=== PATIENT | female | born 1955 | race Asian ===

== ENCOUNTER 2016-07-15 08:00 | Outpatient (CLI) | payer OTHER, MEDICARE | END 2016-07-15 23:59 | DX: N05.9 Unspecified nephritic syndrome with unspecified morphologic changes (principal); T86.10 Unspecified complication of kidney transplant; D70.9 Neutropenia, unspecified; D63.1 Anemia in chronic kidney disease ==

== ENCOUNTER 2016-10-01 07:35 | Outpatient (CLI) | payer OTHER, MEDICARE ==
[2016-10-01 13:03] LABS: HCT - HEMATOCRIT 35.7 % (37.0-47.0); HGB - HEMOGLOBIN 12.1 g/dL (12.0-16.0); MEAN CORPUSCULAR HGB CONC 33.9 g/dL (32.0-36.0); MEAN CORPUSCULAR VOLUME 85.7 fL (81.0-99.0); MEAN PLATELET VOLUME 8.7 fL (7.9-10.8); RED BLOOD COUNT 4.17 10^6/uL (4.20-5.40); RED CELL DISTRIBUTION WIDTH 12.7 % (12.0-15.0)
[2016-10-01 13:45] LABS: CALCIUM 9.7 mg/dL (8.5-10.3); CREATININE 0.7 mg/dL (0.4-1.0); POTASSIUM 4.1 mmol/L (3.5-5.0)
[2016-10-04 13:53] LABS: TEST RESULT REPORT (())
== END 2016-10-01 07:36 | disposition home or self-care (01) ==
LOC: LAB.WCP 07:35
PROVIDERS: ATTEND Internal Medicine Nephrology
DX: N05.9 Unspecified nephritic syndrome with unspecified morphologic changes (principal); D70.9 Neutropenia, unspecified; D63.1 Anemia in chronic kidney disease; T86.10 Unspecified complication of kidney transplant; R80.9 Proteinuria, unspecified
CPT/HCPCS: 36415; 80048; 80195; 80197; 81599; 82570; 84156

== ENCOUNTER → 2016-10-09 | Outpatient (CLI) | payer OTHER, MEDICARE | LOC: LAB.WCP 08:02 | PROVIDERS: ATTEND Internal Medicine Nephrology | DX: T86.10 Unspecified complication of kidney transplant (principal) | CPT/HCPCS: 36415; 80197 ==

== ENCOUNTER 2016-10-25 13:53 | Outpatient (CLI) | payer OTHER, MEDICARE ==
--- NOTE | 2016-10-25 16:05 | XRAY Report ---
TWO VIEW CHEST: 10/25/2016 CLINICAL INDICATION: Dyspnea. COMPARISON: 12/15/2008. FINDINGS: Frontal and lateral views of the chest demonstrate a normal cardiac silhouette. The lungs are clear. No effusion or pneumothorax is present. IMPRESSION: NORMAL CHEST. JOB #: [id number] EXT JOB #:[id number]
== END 2016-10-25 13:54 | disposition home or self-care (01) ==
LOC: DI 13:53
PROVIDERS: ATTEND Internal Medicine Nephrology
DX: R06.00 Dyspnea, unspecified (principal)
CPT/HCPCS: 71020

== ENCOUNTER 2016-10-28 09:05 | Outpatient (CLI) | payer OTHER, MEDICARE ==
[2016-10-28 12:37] LABS: HGB - HEMOGLOBIN 11.9 g/dL (12.0-16.0); MEAN CORPUSCULAR HEMOGLOBIN 29.2 pg (27.0-31.0); MEAN CORPUSCULAR HGB CONC 33.9 g/dL (32.0-36.0); MEAN CORPUSCULAR VOLUME 86.1 fL (81.0-99.0); MEAN PLATELET VOLUME 8.2 fL (7.9-10.8); RED BLOOD COUNT 4.07 10^6/uL (4.20-5.40); RED CELL DISTRIBUTION WIDTH 12.5 % (12.0-15.0); WHITE BLOOD COUNT 9.1 x10^3/uL (4.8-10.8)
[2016-10-28 12:54] LABS: HEMOGLOBIN A1C 0.67 g/dL
[2016-10-28 13:15] LABS: CHOL/HDL RATIO 4.1 (<4.4); CHOLESTEROL 159 mg/dL; HDL CHOLESTEROL 39 mg/dL; LDL/HDL RATIO 1.4 (<4.4); TRIGLYCERIDES 319 mg/dL; VLDL CHOLESTEROL 64 mg/dL
== END 2016-10-28 09:06 | disposition home or self-care (01) ==
LOC: LAB.WCP 09:05
PROVIDERS: ATTEND Internal Medicine Nephrology
DX: D70.9 Neutropenia, unspecified (principal); T86.10 Unspecified complication of kidney transplant; E03.9 Hypothyroidism, unspecified
CPT/HCPCS: 36415; 80061; 80197; 83036; 84443

== ENCOUNTER 2017-01-22 10:10 | Outpatient (CLI) | payer OTHER, MEDICARE ==
[2017-01-22 14:03] LABS: BASOPHILS # (AUTO) 0.1 10^3/uL (0.0-0.1); BASOPHILS % (AUTO) 0.6 %; EOSINOPHILS # (AUTO) 0.4 10^3/uL (0.0-0.7); EOSINOPHILS % (AUTO) 3.6 %; HCT - HEMATOCRIT 32.1 % (37.0-47.0); HGB - HEMOGLOBIN 10.8 g/dL (12.0-16.0); LYMPHOCYTES # (AUTO) 3.5 10^3/uL (1.5-3.5); LYMPHOCYTES % (AUTO) 28.4 %; MEAN CORPUSCULAR HEMOGLOBIN 28.4 pg (27.0-31.0); MEAN CORPUSCULAR HGB CONC 33.5 g/dL (32.0-36.0); MEAN CORPUSCULAR VOLUME 84.8 fL (81.0-99.0); MEAN PLATELET VOLUME 7.5 fL (7.9-10.8); MONOCYTES # (AUTO) 0.9 10^3/uL (0.0-1.0); NEUTROPHILS # (AUTO) 7.4 10^3/uL (1.5-6.6); NEUTROPHILS % (AUTO) 60.4 %; RED BLOOD COUNT 3.79 10^6/uL (4.20-5.40); RED CELL DISTRIBUTION WIDTH 12.4 % (12.0-15.0); UNCORRECTED WHITE BLOOD COUNT 12.3 x10^3/uL; WHITE BLOOD COUNT 12.3 x10^3/uL (4.8-10.8)
== END 2017-01-22 10:11 | disposition home or self-care (01) ==
LOC: LAB.WCP 10:10
PROVIDERS: ATTEND Family Medicine
DX: D72.829 Elevated white blood cell count, unspecified (principal)
CPT/HCPCS: 36415; 85025

== ENCOUNTER 2017-01-27 09:20 | Outpatient (CLI) | payer OTHER, MEDICARE ==
[2017-01-27 14:04] LABS: CALCIUM 9.5 mg/dL (8.5-10.3); CREATININE 0.7 mg/dL (0.4-1.0); POTASSIUM 4.1 mmol/L (3.5-5.0)
[2017-01-27 14:20] LABS: BASOPHILS # (AUTO) 0.1 10^3/uL (0.0-0.1); BASOPHILS % (AUTO) 0.7 %; EOSINOPHILS # (AUTO) 0.6 10^3/uL (0.0-0.7); EOSINOPHILS % (AUTO) 5.3 %; HCT - HEMATOCRIT 31.5 % (37.0-47.0); HGB - HEMOGLOBIN 10.7 g/dL (12.0-16.0); LYMPHOCYTES # (AUTO) 3.6 10^3/uL (1.5-3.5); MEAN CORPUSCULAR HEMOGLOBIN 28.6 pg (27.0-31.0); MEAN CORPUSCULAR VOLUME 84.1 fL (81.0-99.0); MEAN PLATELET VOLUME 7.3 fL (7.9-10.8); MONOCYTES # (AUTO) 0.7 10^3/uL (0.0-1.0); MONOCYTES % (AUTO) 6.1 %; NEUTROPHILS # (AUTO) 6.2 10^3/uL (1.5-6.6); NEUTROPHILS % (AUTO) 55.9 %; RED BLOOD COUNT 3.74 10^6/uL (4.20-5.40); RED CELL DISTRIBUTION WIDTH 12.4 % (12.0-15.0); UNCORRECTED WHITE BLOOD COUNT 11.1 x10^3/uL; WHITE BLOOD COUNT 11.1 x10^3/uL (4.8-10.8)
== END 2017-01-27 09:21 | disposition home or self-care (01) ==
LOC: LAB.WCP 09:20
PROVIDERS: ATTEND Internal Medicine Nephrology
DX: N05.9 Unspecified nephritic syndrome with unspecified morphologic changes (principal); D70.9 Neutropenia, unspecified; D63.1 Anemia in chronic kidney disease; T86.10 Unspecified complication of kidney transplant
CPT/HCPCS: 36415; 80048; 80197; 82728; 85025

== ENCOUNTER 2017-03-05 10:20 | Outpatient (CLI) | payer OTHER, MEDICARE ==
--- NOTE | 2017-03-06 15:31 | Mammography Report ---
DIGITAL SCREENING MAMMOGRAM: 03/05/2017 CLINICAL INDICATION: A 62-year-old with history of benign right breast biopsy for screening. COMPARISON: 03/2015, 01/2014, 09/2012, 01/2012 TECHNIQUE: Routine CC and MLO projections were obtained of the breasts as well as bilateral laterall y exaggerated craniocaudal views. FINDINGS: The breasts demonstrate heterogeneously dense fibroglandular parenchyma bilaterally. Post -biopsy changes in the right upper central breast are stable. Punctate, typically benign calcificati ons are present. No suspicious masses, clustered microcalcifications, or regions of architectural di stortion are identified. IMPRESSION: BENIGN FINDINGS. RECOMMENDATION: Routine annual screening unless otherwise clinically indicated. BIRADS CATEGORY 2 - BENIGN FINDINGS. STANDARD QUALIFYING STATEMENTS 1. This examination was reviewed with the aid of Computer-Aided Detection (CAD). 2. A negative or benign imaging report should not delay biopsy if clinically suspicious findings are present. Consider surgical consultation if warranted. More than 5% of cancers are not identified by i maging. 3. Dense breasts may obscure an underlying neoplasm. JOB #: [id number] EXT JOB #:[id number]
== END 2017-03-05 10:21 | disposition home or self-care (01) ==
LOC: DI 10:20
PROVIDERS: ATTEND Family Medicine
DX: Z12.31 Encounter for screening mammogram for malignant neoplasm of breast (principal)
CPT/HCPCS: 77067

== ENCOUNTER 2017-05-20 08:00 | Outpatient (CLI) | payer OTHER, MEDICARE ==
[2017-05-20 13:06] LABS: HGB - HEMOGLOBIN 11.5 g/dL (12.0-16.0); MEAN CORPUSCULAR HEMOGLOBIN 28.8 pg (27.0-31.0); MEAN CORPUSCULAR VOLUME 84.6 fL (81.0-99.0); RED CELL DISTRIBUTION WIDTH 13.3 % (12.0-15.0); WHITE BLOOD COUNT 8.4 x10^3/uL (4.8-10.8)
[2017-05-20 14:10] LABS: HB2 TOTAL 12.2 g/dL; HEMOGLOBIN A1C 0.65 g/dL
[2017-05-20 14:13] LABS: BUN - BLOOD UREA NITROGEN 22 mg/dL (6-20); CALCIUM 9.4 mg/dL (8.5-10.3); CARBON DIOXIDE - CO2 24 mmol/L (21-32); CHLORIDE 103 mmol/L (101-111); CHOL/HDL RATIO 3.4 (<4.4); CHOLESTEROL 161 mg/dL; CREATININE 0.8 mg/dL (0.4-1.0); GFR - MDRD 72 (>89); GLUCOSE 136 mg/dL (70-100); HDL CHOLESTEROL 47 mg/dL; LDL CHOLESTEROL,CALCULATED 80 mg/dL; LDL/HDL RATIO 1.7 (<4.4); SODIUM 136 mmol/L (135-145); VLDL CHOLESTEROL 34 mg/dL
== END 2017-05-20 08:01 | disposition home or self-care (01) ==
LOC: LAB.WCP 08:00
PROVIDERS: ATTEND Internal Medicine Nephrology
DX: E11.9 Type 2 diabetes mellitus without complications (principal); N05.9 Unspecified nephritic syndrome with unspecified morphologic changes; D70.9 Neutropenia, unspecified; D63.1 Anemia in chronic kidney disease; T86.10 Unspecified complication of kidney transplant
CPT/HCPCS: 36415; 80048; 80061; 80197; 83036

== ENCOUNTER 2017-05-27 08:00 | Outpatient (CLI) | payer OTHER, MEDICARE ==
[2017-05-27 12:44] LABS: HGB - HEMOGLOBIN 12.3 g/dL (12.0-16.0); MEAN CORPUSCULAR HEMOGLOBIN 28.7 pg (27.0-31.0); MEAN CORPUSCULAR HGB CONC 34.2 g/dL (32.0-36.0); MEAN CORPUSCULAR VOLUME 83.9 fL (81.0-99.0); MEAN PLATELET VOLUME 7.6 fL (7.9-10.8); RED BLOOD COUNT 4.3 10^6/uL (4.20-5.40); RED CELL DISTRIBUTION WIDTH 13.1 % (12.0-15.0); WHITE BLOOD COUNT 10.3 x10^3/uL (4.8-10.8)
[2017-05-27 12:53] LABS: CALCIUM 9.6 mg/dL (8.5-10.3); CREATININE 0.8 mg/dL (0.4-1.0)
== END 2017-05-27 08:01 | disposition home or self-care (01) ==
LOC: LAB.WCP 08:00
PROVIDERS: ATTEND Internal Medicine Nephrology
DX: N05.9 Unspecified nephritic syndrome with unspecified morphologic changes (principal); D70.9 Neutropenia, unspecified; D63.1 Anemia in chronic kidney disease; T86.10 Unspecified complication of kidney transplant
CPT/HCPCS: 36415; 80048; 80197; 85025

== ENCOUNTER 2017-06-11 08:00 | Outpatient (CLI) | payer OTHER, MEDICARE | END 2017-06-11 08:01 | disposition home or self-care (01) | LOC: LAB.WCP 08:00 | PROVIDERS: ATTEND Internal Medicine Nephrology | DX: T86.10 Unspecified complication of kidney transplant (principal) | CPT/HCPCS: 36415; 80197 ==

== ENCOUNTER 2017-06-18 08:00 | Outpatient (CLI) | payer OTHER, MEDICARE | END 2017-06-18 08:01 | disposition home or self-care (01) | LOC: LAB.WCP 08:00 | PROVIDERS: ATTEND Internal Medicine Nephrology | DX: T86.10 Unspecified complication of kidney transplant (principal) | CPT/HCPCS: 36415; 80197 ==

== ENCOUNTER 2017-07-10 10:18 | Outpatient (CLI) | payer OTHER, MEDICARE ==
--- NOTE | 2017-07-11 10:39 | DEXA Report ---
DEXA: 07/10/2017 CLINICAL INDICATION: Postmenopausal osteoporosis. TECHNIQUE: Dual energy x-ray absorptiometry (DXA) was performed on a [employer] system. Regions measured are the AP spine, femoral neck, and, if needed, forearm. COMPARISON: None. In accordance with the International Society for Clinical Densitometry (ISCD) guidelines, data from previous exams may be reanalyzed using current recommendations and techniques. This is done to allow a more accurate basis for comparison with the current study. FINDINGS The data for the lumbar spine is as follows: REGION BMD (g/cm/cm) T-SCORE Z-SCORE L1 0.834 -2.5 -0.1 L2 0.808 -3.3 -0.9 L3 0.738 -3.9 -1.5 L4 0.930 -2.2 0.1 L1-L4 0.828 -2.9 -0.6 NOTE: All evaluable vertebrae are used for classification. The data for the hip is as follows: REGION BMD (g/cm/cm) T-SCORE Z-SCORE Neck 0.592 -3.2 -1.2 TOTAL 0.694 -2.5 -0.7 NOTE: The femoral neck or total proximal femur, whichever is lowest, is used for classification. IMPRESSION THE WHO CLASSIFICATION BASED ON THE INTERNATIONAL REFERENCE STANDARD IS OSTEOPOROSIS. THE FRACTURE RISK IS HIGH. RECOMMENDATION: Patients with diagnosis of osteoporosis or osteopenia should have regular bone mineral density assessment. For those eligible for Medicare, routine testing is allowed once every 2 years. Testing frequency can be increased for patients who have rapidly progressing disease or for those who are receiving medical therapy to restore bone mass. COMMENT: World Health Organization (WHO) definitions for osteoporosis and osteopenia: NORMAL BMD: T-score at 1.0 or higher, fracture risk is low. OSTEOPENIA BMD: T-score between 1.0 and -2.5, fracture risk is increased. OSTEOPOROSIS BMD: T-score at 2.5 or lower, fracture risk high. National Osteoporosis Foundation recommends: 1. Obtain adequate dietary calcium (at least 1200 mg per day) and vitamin D (400 -800 international units per day). 2. Participate, as appropriate, in regular weightbearing and muscle- strengthening exercise. 3. Avoid tobacco use and reduce alcohol and caffeine intake. 4. For more detailed information see the website at www.NOF.org. TD: 07/10/2017 17:17 IVÁN
== END 2017-07-10 10:19 | disposition home or self-care (01) ==
LOC: DI 10:18
PROVIDERS: ATTEND Family Medicine
DX: M81.0 Age-related osteoporosis without current pathological fracture (principal)
CPT/HCPCS: 77080

== ENCOUNTER 2017-10-01 08:00 | Outpatient (CLI) | payer OTHER, MEDICARE ==
[2017-10-01 13:03] LABS: BASOPHILS # (AUTO) 0.1 10^3/uL (0.0-0.1); BASOPHILS % (AUTO) 1.1 %; EOSINOPHILS # (AUTO) 0.5 10^3/uL (0.0-0.7); EOSINOPHILS % (AUTO) 5.1 %; HGB - HEMOGLOBIN 12.3 g/dL (12.0-16.0); LYMPHOCYTES # (AUTO) 3.4 10^3/uL (1.5-3.5); MEAN CORPUSCULAR HEMOGLOBIN 28.9 pg (27.0-31.0); MEAN CORPUSCULAR HGB CONC 34.1 g/dL (32.0-36.0); MEAN CORPUSCULAR VOLUME 84.7 fL (81.0-99.0); MEAN PLATELET VOLUME 8.3 fL (7.9-10.8); MONOCYTES # (AUTO) 0.5 10^3/uL (0.0-1.0); NEUTROPHILS # (AUTO) 4.7 10^3/uL (1.5-6.6); NEUTROPHILS % (AUTO) 51.8 %; PLT - PLATELET COUNT 302 10^3/uL (130-450); RED BLOOD COUNT 4.27 10^6/uL (4.20-5.40); RED CELL DISTRIBUTION WIDTH 12.6 % (12.0-15.0); WHITE BLOOD COUNT 9.1 x10^3/uL (4.8-10.8)
[2017-10-01 13:13] LABS: ALBUMIN 4.6 g/dL (3.2-5.5); ALBUMIN/GLOBULIN RATIO 1.4 (1.0-2.2); ALKALINE PHOSPHATASE 43 IU/L (42-121); ALT ALANINE AMINOTRANSFERASE 29 IU/L (10-60); AST ASPARTATE AMINOTRANSFERASE 28 IU/L (10-42); BILIRUBIN,TOTAL 0.8 mg/dL (0.2-1.0); BUN - BLOOD UREA NITROGEN 16 mg/dL (6-20); CALCIUM 9.7 mg/dL (8.5-10.3); CARBON DIOXIDE - CO2 25 mmol/L (21-32); CHLORIDE 98 mmol/L (101-111); CHOL/HDL RATIO 3.2 (<4.4); CHOLESTEROL 149 mg/dL; CREATININE 0.6 mg/dL (0.4-1.0); GFR - MDRD 101 (>89); GLUCOSE 139 mg/dL (70-100); HDL CHOLESTEROL 46 mg/dL; LDL CHOLESTEROL,CALCULATED 64 mg/dL; LDL/HDL RATIO 1.4 (<4.4); SODIUM 133 mmol/L (135-145); TOTAL PROTEIN 7.9 g/dL (6.7-8.2); VLDL CHOLESTEROL 39 mg/dL
[2017-10-01 13:17] LABS: HB2 TOTAL 13.6 g/dL; HEMOGLOBIN A1C 0.73 g/dL; HEMOGLOBIN A1C % 7.1 % (4.6-6.2)
[2017-10-01 13:18] LABS: THYROID STIMULATING HORMONE 2.23 uIU/mL (0.34-5.60)
== END 2017-10-01 08:01 ==
LOC: LAB.WCP 08:00
PROVIDERS: ATTEND Family Medicine
DX: Z94.0 Kidney transplant status (principal); E11.22 Type 2 diabetes mellitus with diabetic chronic kidney disease; N18.9 Chronic kidney disease, unspecified; D63.1 Anemia in chronic kidney disease; E78.5 Hyperlipidemia, unspecified
CPT/HCPCS: 36415; 80053; 80061; 80197; 82607; 82728; 83036; 83721; 84443; 85025

== ENCOUNTER 2017-11-17 08:19 | Outpatient (CLI) | payer OTHER, MEDICARE ==
[2017-11-17 12:37] LABS: HGB - HEMOGLOBIN 11.8 g/dL (12.0-16.0); MEAN CORPUSCULAR HEMOGLOBIN 28.7 pg (27.0-31.0); MEAN CORPUSCULAR HGB CONC 33.1 g/dL (32.0-36.0); MEAN CORPUSCULAR VOLUME 86.7 fL (81.0-99.0); MEAN PLATELET VOLUME 8.1 fL (7.9-10.8); RED BLOOD COUNT 4.13 10^6/uL (4.20-5.40); RED CELL DISTRIBUTION WIDTH 12.8 % (12.0-15.0)
[2017-11-17 12:42] LABS: CREATININE 0.6 mg/dL (0.4-1.0)
[2017-11-17 12:49] LABS: CREATININE,URINE 92.2 mg/dL; PROTEIN/CREATININE RATIO,URINE 0.8 (<=0.2)
== END 2017-11-17 08:20 | disposition home or self-care (01) ==
LOC: LAB.WCP 08:19
PROVIDERS: ATTEND Internal Medicine Nephrology
DX: N05.9 Unspecified nephritic syndrome with unspecified morphologic changes (principal); D63.1 Anemia in chronic kidney disease; D70.9 Neutropenia, unspecified; T86.10 Unspecified complication of kidney transplant; R80.9 Proteinuria, unspecified
CPT/HCPCS: 36415; 80048; 80197; 82570; 84156; 85027

== ENCOUNTER 2017-12-17 08:00 | Outpatient (CLI) | payer OTHER, MEDICARE ==
[2017-12-17 19:00] LABS: BASOPHILS # (AUTO) 0.1 10^3/uL (0.0-0.1); BASOPHILS % (AUTO) 1.2 %; EOSINOPHILS # (AUTO) 0.5 10^3/uL (0.0-0.7); EOSINOPHILS % (AUTO) 5.2 %; HGB - HEMOGLOBIN 11.9 g/dL (12.0-16.0); LYMPHOCYTES # (AUTO) 2.5 10^3/uL (1.5-3.5); LYMPHOCYTES % (AUTO) 27.5 %; MEAN CORPUSCULAR HEMOGLOBIN 28.4 pg (27.0-31.0); MEAN CORPUSCULAR HGB CONC 32.3 g/dL (32.0-36.0); MEAN CORPUSCULAR VOLUME 88.1 fL (81.0-99.0); MEAN PLATELET VOLUME 7.7 fL (7.9-10.8); MONOCYTES # (AUTO) 0.6 10^3/uL (0.0-1.0); MONOCYTES % (AUTO) 6.7 %; NEUTROPHILS # (AUTO) 5.3 10^3/uL (1.5-6.6); NEUTROPHILS % (AUTO) 59.4 %; PLT - PLATELET COUNT 474 10^3/uL (130-450); RED BLOOD COUNT 4.19 10^6/uL (4.20-5.40); RED CELL DISTRIBUTION WIDTH 12.8 % (12.0-15.0); WHITE BLOOD COUNT 8.9 x10^3/uL (4.8-10.8)
[2017-12-17 19:14] LABS: ALBUMIN 3.9 g/dL (3.2-5.5); BILIRUBIN,TOTAL 0.5 mg/dL (0.2-1.0); CALCIUM 9.5 mg/dL (8.5-10.3); CREATININE 0.7 mg/dL (0.4-1.0); TOTAL PROTEIN 7.7 g/dL (6.7-8.2)
== END 2017-12-17 08:01 ==
LOC: LAB.WCP 08:00
PROVIDERS: ATTEND Family Medicine
DX: Z20.1 Contact with and (suspected) exposure to tuberculosis (principal)
CPT/HCPCS: 36415; 80053; 85025

== ENCOUNTER 2018-01-15 10:55 | Outpatient (CLI) | payer OTHER, MEDICARE ==
[2018-01-15 19:14] LABS: ALBUMIN 4.5 g/dL (3.2-5.5); ALBUMIN/GLOBULIN RATIO 1.3 (1.0-2.2); BILIRUBIN,TOTAL 0.7 mg/dL (0.2-1.0); CALCIUM 9.7 mg/dL (8.5-10.3); CREATININE 0.6 mg/dL (0.4-1.0)
== END 2018-01-15 10:56 | disposition home or self-care (01) ==
LOC: LAB.WCP 10:55
PROVIDERS: ATTEND Family Medicine
DX: R76.11 Nonspecific reaction to tuberculin skin test without active tuberculosis (principal)
CPT/HCPCS: 36415; 80053

== ENCOUNTER 2018-02-17 13:48 | Outpatient (CLI) | payer OTHER, MEDICARE ==
[2018-02-17 19:10] LABS: ALBUMIN 4.5 g/dL (3.2-5.5); ALBUMIN/GLOBULIN RATIO 1.3 (1.0-2.2); BILIRUBIN,TOTAL 0.5 mg/dL (0.2-1.0); CALCIUM 9.5 mg/dL (8.5-10.3); CREATININE 0.8 mg/dL (0.4-1.0); TOTAL PROTEIN 7.9 g/dL (6.7-8.2)
== END 2018-02-17 13:49 | disposition home or self-care (01) ==
LOC: LAB.WCP 13:48
PROVIDERS: ATTEND Family Medicine
DX: R76.11 Nonspecific reaction to tuberculin skin test without active tuberculosis (principal)
CPT/HCPCS: 36415; 80053

== ENCOUNTER 2018-03-03 15:57 | Outpatient (CLI) | payer OTHER, MEDICARE | END 2018-03-03 15:58 | disposition critical access hospital (66) | LOC: EMS 15:57 | PROVIDERS: ATTEND Surgery | DX: M25.532 Pain in left wrist (principal); W10.8XXA Fall (on) (from) other stairs and steps, initial encounter; Y92.008 Other place in unspecified non-institutional (private) residence as the place of occurrence of the external cause | CPT/HCPCS: A0425; A0429 ==

== ENCOUNTER 2018-03-03 16:22 | Emergency (ER) | payer MEDICARE, OTHER ==
[2018-03-03] MEDS ORDERED: ACETAMINOPHEN 325 MG TABLET PO STA (16:32)
[2018-03-03 16:36] VITALS: BP 175/96
--- NOTE | 2018-03-03 16:36 | ED Physician Documentation ---
History of Present Illness - Stated complaint Stated Complaint: L ARM INJURY - Additonal information Additional information: hx from pt 63 y/o f trip and fall L arm FOOSH pain to FA primarily wrist no numbness or tingling no head or neck injury no blood thinners s/p renal transplant > 10 yr ago, tylenol OK Review of Systems Musculoskeletal: reports: Extremity pain PD PAST MEDICAL HISTORY - Past Medical History Cardiovascular: Hypertension Respiratory: None Endocrine/Autoimmune: Type 2 diabetes GI: Chronic diarrhea : Renal insuffiency HEENT: None Psych: Anxiety Musculoskeletal: Osteoarthritis, Osteoporosis Derm: None - Past Surgical History Past Surgical History: Yes - Present Medications Home Medications: Ambulatory Orders Medication Instructions Recorded Confirmed Amlodipine Besylate 10 mg PO 12/25/12 12/25/12 Metformin HCl [Glumetza] 500 mg PO 12/25/12 12/25/12 Mycophenolate Mofetil [Cellcept] 200 mg PO 12/25/12 12/25/12 Potassium Gluconate [Potassium] 99 mg PO 12/25/12 12/25/12 Simvastatin [Zocor] 20 mg PO 12/25/12 12/25/12 Tacrolimus, Micronized [Tacrolimus 5 gm MC 12/25/12 12/25/12 Micronized] - Allergies Allergies/Adverse Reactions: Allergies Allergy/AdvReac Type Severity Reaction Status Date / Time Sulfa (Sulfonamide Allergy Intermediate Rash Verified 03/03/18 16:26 Antibiotics) - Social History Does the pt smoke?: No Smoking Status: Never smoker Does the pt drink ETOH?: No Does the pt have substance abuse?: No PD ED PE NORMAL - Vitals Vital signs reviewed: Yes - Extremities Extremities: Other (no gross deformity but TTP primarily to volar wrist, no open wounds, MSV intact, asked nurse Manuel to remove rings) - Neuro Neuro: No motor deficit, No sensory deficit Results - Vitals Vitals: Vital Signs - 24 hr 03/03/18 16:26 Temperature 36.3 C L Heart Rate 94 Respiratory 16 Rate Blood Pressure 175/96 H O2 Saturation 100 Oxygen O2 Source Room air - Rads (name of study) wrist Radiology: See rad report (transversely oriented fracture through distal left radius with mild dorsal angulation, minimally displaced ulnar styoid fx) forearm Radiology: See rad report (wrist fx, no proximal fx or dislocation) Procedures - Splint (location) L FA Splint applied by: Tech Type of splint: Fiberglass, Short arm, Sugar tong Other: Patient tolerated well, No complications, Neurovascular intact, Sling provided, Other Departure - Departure Disposition: 01 Home, Self Care Clinical Impression: Wrist fracture, right Qualifiers: Encounter type: initial encounter Fracture type: closed Qualified Code(s): S62.101A - Fracture of unspecified carpal bone, right wrist, initial encounter for closed fracture Condition: Good Instructions: Fx Wrist Tx, ED Splint Care Fiberglass Follow-Up: Elvis Rincon DO [Primary Care Provider] - [facility] [Provider Group] Comments: Wear the splint at all times If it feels too tight, can loosen the EDEN wrap a bit Apply ice for 20 minutes at a time every 2 hr and keep the arm elevated to decrease swelling Tyenol for pain (since you vomit with narcotics and are not supposed to take motrin after your kidney transplant)
--- NOTE | 2018-03-03 17:31 | XRAY Report ---
Reason: FOOSH Procedure Date: 03/03/2018 Accession Number: [id number] / [id number] Procedure: XR - Forearm LT CPT Code: FULL RESULT: EXAM: LEFT FOREARM RADIOGRAPHY EXAM DATE: 03/03/2018 05:21 PM. CLINICAL HISTORY: FOOSH. COMPARISON: None. TECHNIQUE: 2 views. FINDINGS: Findings within the wrist are detailed separately. Proximally, no evidence of fracture or dislocation. There are surgical clips within the antecubital fossa region. IMPRESSION: Findings within the wrist are detailed separately. Proximally, no evidence of fracture or dislocation. RADIA
--- NOTE | 2018-03-03 17:35 | XRAY Report ---
Reason: FOOSH Procedure Date: 03/03/2018 Accession Number: [id number] / [id number] Procedure: XR - Wrist 4 View LT CPT Code: FULL RESULT: EXAM: LEFT WRIST RADIOGRAPHY EXAM DATE: 03/03/2018 05:21 PM. CLINICAL HISTORY: Fall on outstretched hand. COMPARISON: None. TECHNIQUE: 4 views. FINDINGS: Bones: There is transversely oriented fracture through the distal left radius. Mild dorsal angulation. No evidence of significant displacement. There is minimally displaced fracture through the ulnar styloid. Joints: No evidence of dislocation. Soft Tissues: No unexpected soft tissue findings. IMPRESSION: 1. There is transversely oriented fracture through the distal left radius with mild dorsal angulation. 2. Likely minimally displaced acute fracture through the ulnar styloid. 3. There is no evidence of dislocation. RADIA
== END 2018-03-03 18:24 | disposition home or self-care (01) ==
LOC: EDUNIT# → ED 16:22
DX: S52.502A Unspecified fracture of the lower end of left radius, initial encounter for closed fracture (principal); S52.612A Displaced fracture of left ulna styloid process, initial encounter for closed fracture; W01.0XXA Fall on same level from slipping, tripping and stumbling without subsequent striking against object, initial encounter; I10 Essential (primary) hypertension; E11.9 Type 2 diabetes mellitus without complications; Z79.84 Long term (current) use of oral hypoglycemic drugs; Z94.0 Kidney transplant status
CPT/HCPCS: 29125; 73090; 73110; 99282; 99283; A9270

== ENCOUNTER 2018-03-24 11:18 | Outpatient (CLI) | payer OTHER, MEDICARE ==
[2018-03-24 19:37] LABS: ALBUMIN 4.5 g/dL (3.2-5.5); ALBUMIN/GLOBULIN RATIO 1.3 (1.0-2.2); BILIRUBIN,TOTAL 0.5 mg/dL (0.2-1.0); CALCIUM 9.5 mg/dL (8.5-10.3); CREATININE 0.6 mg/dL (0.4-1.0); TOTAL PROTEIN 7.9 g/dL (6.7-8.2)
== END 2018-03-24 11:19 | disposition home or self-care (01) ==
LOC: LAB.WCP 11:18
PROVIDERS: ATTEND Family Medicine
DX: R76.11 Nonspecific reaction to tuberculin skin test without active tuberculosis (principal)
CPT/HCPCS: 36415; 80053

== ENCOUNTER 2018-06-16 08:00 | Outpatient (CLI) | payer OTHER, MEDICARE ==
[2018-06-16 13:12] LABS: HGB - HEMOGLOBIN 12.4 g/dL (12.0-16.0); MEAN CORPUSCULAR HEMOGLOBIN 28.3 pg (27.0-31.0); MEAN CORPUSCULAR HGB CONC 33.7 g/dL (32.0-36.0); MEAN CORPUSCULAR VOLUME 83.9 fL (81.0-99.0); MEAN PLATELET VOLUME 7.9 fL (7.9-10.8); RED BLOOD COUNT 4.37 10^6/uL (4.20-5.40); RED CELL DISTRIBUTION WIDTH 13.3 % (12.0-15.0); WHITE BLOOD COUNT 9.6 x10^3/uL (4.8-10.8)
[2018-06-16 13:21] LABS: ALBUMIN 4.5 g/dL (3.2-5.5); ALBUMIN/GLOBULIN RATIO 1.5 (1.0-2.2); BILIRUBIN,TOTAL 0.7 mg/dL (0.2-1.0); CALCIUM 9.6 mg/dL (8.5-10.3); CREATININE 0.7 mg/dL (0.4-1.0); TOTAL PROTEIN 7.6 g/dL (6.7-8.2)
[2018-06-16 13:31] LABS: CREATININE,URINE 102.1 mg/dL; PROTEIN/CREATININE RATIO,URINE 0.2 (<=0.2)
== END 2018-06-16 23:59 | disposition home or self-care (01) ==
LOC: LAB.WCP 08:00
PROVIDERS: ATTEND Internal Medicine Nephrology
DX: R76.11 Nonspecific reaction to tuberculin skin test without active tuberculosis (principal); N05.9 Unspecified nephritic syndrome with unspecified morphologic changes; D63.1 Anemia in chronic kidney disease; T86.10 Unspecified complication of kidney transplant; R80.9 Proteinuria, unspecified
CPT/HCPCS: 36415; 80053; 80197; 82043; 82570; 84156; 85027

== ENCOUNTER 2018-09-03 08:00 | Outpatient (CLI) | payer OTHER, MEDICARE ==
[2018-09-03 19:04] LABS: HB2 TOTAL 12.7 g/dL; HEMOGLOBIN A1C 0.68 g/dL
[2018-09-03 19:06] LABS: ALBUMIN 4.4 g/dL (3.2-5.5); ALBUMIN/GLOBULIN RATIO 1.4 (1.0-2.2); ALKALINE PHOSPHATASE 46 IU/L (42-121); ALT ALANINE AMINOTRANSFERASE 26 IU/L (10-60); AST ASPARTATE AMINOTRANSFERASE 32 IU/L (10-42); BILIRUBIN,TOTAL 0.7 mg/dL (0.2-1.0); BUN - BLOOD UREA NITROGEN 18 mg/dL (6-20); CALCIUM 9.7 mg/dL (8.5-10.3); CARBON DIOXIDE - CO2 25 mmol/L (21-32); CHLORIDE 100 mmol/L (101-111); CHOL/HDL RATIO 3.6 (<4.4); CHOLESTEROL 152 mg/dL; CREATININE 0.6 mg/dL (0.4-1.0); GFR - MDRD 101 (>89); GLUCOSE 131 mg/dL (70-100); HDL CHOLESTEROL 42 mg/dL; LDL CHOLESTEROL,CALCULATED 52 mg/dL; LDL/HDL RATIO 1.2 (<4.4); SODIUM 135 mmol/L (135-145); TOTAL PROTEIN 7.6 g/dL (6.7-8.2); VLDL CHOLESTEROL 58 mg/dL
== END 2018-09-03 23:59 | disposition home or self-care (01) ==
LOC: LAB.WCP 08:00
PROVIDERS: ATTEND Family Medicine
DX: E11.9 Type 2 diabetes mellitus without complications (principal); R76.11 Nonspecific reaction to tuberculin skin test without active tuberculosis
CPT/HCPCS: 36415; 80053; 80061; 83036; 83721

== ENCOUNTER 2018-12-14 08:00 | Outpatient (CLI) | payer OTHER, MEDICARE ==
[2018-12-14 13:07] LABS: HGB - HEMOGLOBIN 11.8 g/dL (12.0-16.0); MEAN CORPUSCULAR HEMOGLOBIN 28.3 pg (27.0-31.0); MEAN CORPUSCULAR HGB CONC 32.8 g/dL (32.0-36.0); MEAN CORPUSCULAR VOLUME 86.3 fL (81.0-99.0); MEAN PLATELET VOLUME 9.9 fL (7.9-10.8); RED BLOOD COUNT 4.17 10^6/uL (4.20-5.40)
[2018-12-14 13:26] LABS: CALCIUM 9.4 mg/dL (8.5-10.3); CREATININE 0.7 mg/dL (0.4-1.0)
== END 2018-12-14 08:01 | disposition home or self-care (01) ==
LOC: LAB.WCP 08:00
PROVIDERS: ATTEND Internal Medicine Nephrology
DX: N05.9 Unspecified nephritic syndrome with unspecified morphologic changes (principal); D70.9 Neutropenia, unspecified; D63.1 Anemia in chronic kidney disease; T86.10 Unspecified complication of kidney transplant
CPT/HCPCS: 36415; 80048; 80197; 85027

== ENCOUNTER 2019-04-01 13:22 | Outpatient (CLI) | payer OTHER, MEDICARE ==
[2019-04-01 18:55] LABS: BASOPHILS # (AUTO) 0.1 10^3/uL (0.0-0.1); BASOPHILS % (AUTO) 0.9 %; EOSINOPHILS % (AUTO) 9.3 %; HGB - HEMOGLOBIN 11.4 g/dL (12.0-16.0); LYMPHOCYTES # (AUTO) 3.5 10^3/uL (1.5-3.5); LYMPHOCYTES % (AUTO) 33.2 %; MEAN CORPUSCULAR HEMOGLOBIN 28.4 pg (27.0-31.0); MEAN CORPUSCULAR HGB CONC 31.8 g/dL (32.0-36.0); MEAN CORPUSCULAR VOLUME 89.3 fL (81.0-99.0); MEAN PLATELET VOLUME 9.9 fL (7.9-10.8); MONOCYTES # (AUTO) 0.7 10^3/uL (0.0-1.0); MONOCYTES % (AUTO) 6.9 %; NEUTROPHILS # (AUTO) 5.2 10^3/uL (1.5-6.6); NEUTROPHILS % (AUTO) 49.2 %; PLT - PLATELET COUNT 317 10^3/uL (130-450); RED BLOOD COUNT 4.02 10^6/uL (4.20-5.40); RED CELL DISTRIBUTION WIDTH 12.3 % (12.0-15.0); WHITE BLOOD COUNT 10.5 x10^3/uL (4.8-10.8)
[2019-04-01 19:11] LABS: ALBUMIN 4.1 g/dL (3.2-5.5); ALBUMIN/GLOBULIN RATIO 1.2 (1.0-2.2); BILIRUBIN,TOTAL 0.4 mg/dL (0.2-1.0); CALCIUM 9.5 mg/dL (8.5-10.3); CREATININE 0.8 mg/dL (0.4-1.0); MAGNESIUM 1.4 mg/dL (1.7-2.8); TOTAL PROTEIN 7.5 g/dL (6.7-8.2)
[2019-04-01 19:49] LABS: HB2 TOTAL 11.3 g/dL; HEMOGLOBIN A1C 0.59 g/dL; HEMOGLOBIN A1C % 6.9 % (4.6-6.2)
== END 2019-04-01 23:59 | disposition home or self-care (01) ==
LOC: LAB.WCP 13:22
PROVIDERS: ATTEND Family Medicine
DX: E11.9 Type 2 diabetes mellitus without complications (principal); R00.2 Palpitations
CPT/HCPCS: 36415; 80053; 83036; 83735; 84443; 85025

== ENCOUNTER 2019-05-24 08:00 | Outpatient (CLI) | payer MEDICARE, OTHER ==
[2019-05-24 12:06] LABS: HGB - HEMOGLOBIN 11.7 g/dL (12.0-16.0); MEAN CORPUSCULAR HEMOGLOBIN 28.3 pg (27.0-31.0); MEAN CORPUSCULAR HGB CONC 32.5 g/dL (32.0-36.0); MEAN CORPUSCULAR VOLUME 87.2 fL (81.0-99.0); MEAN PLATELET VOLUME 9.6 fL (7.9-10.8); RED BLOOD COUNT 4.13 10^6/uL (4.20-5.40); WHITE BLOOD COUNT 8.4 x10^3/uL (4.8-10.8)
[2019-05-24 12:20] LABS: CALCIUM 9.1 mg/dL (8.5-10.3); CREATININE 0.7 mg/dL (0.4-1.0)
[2019-05-24 12:53] LABS: CREATININE,URINE 109.1 mg/dL; PROTEIN/CREATININE RATIO,URINE 0.4 (<=0.2)
== END 2019-05-24 23:59 | disposition home or self-care (01) ==
LOC: LAB.WCP 08:00
PROVIDERS: ATTEND Internal Medicine Nephrology
DX: N05.9 Unspecified nephritic syndrome with unspecified morphologic changes (principal); I50.32 Chronic diastolic (congestive) heart failure; N18.9 Chronic kidney disease, unspecified; D63.1 Anemia in chronic kidney disease; D70.9 Neutropenia, unspecified; R80.9 Proteinuria, unspecified; T86.10 Unspecified complication of kidney transplant
CPT/HCPCS: 36415; 80048; 80197; 82570; 83880; 84156; 85027

== ENCOUNTER 2019-07-29 11:57 | Outpatient (CLI) | payer MEDICARE, OTHER ==
--- NOTE | 2019-07-29 18:25 | XRAY Report ---
Reason: HEEL PAIN,RIGHT Procedure Date: 07/29/2019 Accession Number: [id number] / [id number] Procedure: XR - Foot 3 View RT CPT Code: Final Report FULL RESULT: EXAM: RIGHT FOOT RADIOGRAPHY EXAM DATE: 07/29/2019 12:16 PM. CLINICAL HISTORY: HEEL PAIN, RIGHT. COMPARISON: None. TECHNIQUE: 3 views. FINDINGS: Bones: Achilles tendon and plantar insertion spurs in the calcaneus. No acute fractures or bone lesions. Possible old proximal phalanx fifth toe fracture. Joints: Moderate first metatarsophalangeal joint degenerative changes of the joint space loss and osteophytosis. No subluxations. Soft Tissues: Normal. No soft tissue swelling. IMPRESSION: 1. No acute abnormality seen in the right foot. 2. Calcaneal spurs. 3. Moderate first MTP joint degenerative changes. RADIA
== END 2019-07-29 11:58 | disposition home or self-care (01) ==
LOC: DI 11:57
PROVIDERS: ATTEND Family Medicine
DX: M77.31 Calcaneal spur, right foot (principal); M19.071 Primary osteoarthritis, right ankle and foot

== ENCOUNTER 2019-11-30 12:49 | Outpatient (CLI) | payer MEDICARE, OTHER | END 2019-11-30 12:50 | disposition home or self-care (01) | LOC: DI 12:49 | PROVIDERS: ATTEND Family Medicine | DX: R00.2 Palpitations (principal) | CPT/HCPCS: 93306 ==

== ENCOUNTER 2019-12-29 10:54 | Outpatient (CLI) | payer MEDICARE, OTHER | END 2019-12-29 23:59 | disposition home or self-care (01) | LOC: LAB.WCP 10:54 | PROVIDERS: ATTEND Family Medicine | DX: R41.3 Other amnesia (principal) | CPT/HCPCS: 36415; 81599; 82607; 84443; 86140; 86592 ==

== ENCOUNTER 2019-12-30 21:51 | Outpatient (CLI) | payer MEDICARE, OTHER | END 2019-12-30 21:52 | disposition critical access hospital (66) | LOC: EMS 21:51 | PROVIDERS: ATTEND Surgery | DX: R07.9 Chest pain, unspecified (principal); R42 Dizziness and giddiness | CPT/HCPCS: A0425; A0427 ==

== ENCOUNTER 2019-12-30 22:13 | Emergency (ER) | payer MEDICARE, OTHER ==
[2019-12-30] MEDS ORDERED: DILTIAZEM 50 MG/10 ML VIAL IVP ONE (22:21)
[2019-12-30 23:24] LABS: BASOPHILS # (AUTO) 0.1 10^3/uL (0.0-0.1); BASOPHILS % (AUTO) 0.7 %; EOSINOPHILS # (AUTO) 0.9 10^3/uL (0.0-0.7); EOSINOPHILS % (AUTO) 6.1 %; HGB - HEMOGLOBIN 11.9 g/dL (12.0-16.0); LYMPHOCYTES # (AUTO) 3.7 10^3/uL (1.5-3.5); LYMPHOCYTES % (AUTO) 24.3 %; MEAN CORPUSCULAR HGB CONC 33.1 g/dL (32.0-36.0); MEAN CORPUSCULAR VOLUME 87.6 fL (81.0-99.0); MEAN PLATELET VOLUME 9.2 fL (7.9-10.8); MONOCYTES # (AUTO) 0.8 10^3/uL (0.0-1.0); NEUTROPHILS # (AUTO) 9.6 10^3/uL (1.5-6.6); NEUTROPHILS % (AUTO) 63.4 %; PLT - PLATELET COUNT 271 10^3/uL (130-450); RED CELL DISTRIBUTION WIDTH 11.9 % (12.0-15.0); WHITE BLOOD COUNT 15.2 x10^3/uL (4.8-10.8)
[2019-12-30 23:25] LABS: ALBUMIN 4.2 g/dL (3.2-5.5); ALBUMIN/GLOBULIN RATIO 1.4 (1.0-2.2); BILIRUBIN,TOTAL 0.6 mg/dL (0.2-1.0); CALCIUM 8.8 mg/dL (8.5-10.3); CREATININE 0.8 mg/dL (0.4-1.0); TOTAL PROTEIN 7.3 g/dL (6.7-8.2)
--- NOTE | 2019-12-31 02:13 | ED Physician Documentation ---
History of Present Illness - Stated complaint Stated Complaint: CP, WEAKNESS - Chief complaint Chief Complaint: Cardiac - History obtained from History obtained from: Patient, EMS - Additonal information Additional information: Patient comes emergency department complaining of chest pressure and palpitations on and off since noon, with worst being 8/10 and current . Medics report that when they picked the patient up, they found her to have a heart rate that was irregular and ranging between the 170s to 190s.Patient states she has no history of atrial fibrillation previously. She has history of hypertension and a kidney transplant, though she is not quite sure what caused her kidneys to fill in the first place. Patient states she is not a diabetic and does not has history of severe hypertension. She currently sees Dr. Gayle for nephrology. She states that she had an echocardiogram done because of palpitations some months ago, and is scheduled to see Dr. Yeboah on January 20. Patient states she is having only a mild amount of chest pain now after the medics gave her diltiazem in route. Medics report that the patient improved greatly, heart rate menendez, after receiving 10 of diltiazem IV in the ambulance. Patient reported all of her symptoms resolved but that then, her heart rate jumped back up into the 190s and patient began to complain of chest pain again. Patient denies any history of dyspnea on exertion or chest pain on exertion. No other complaints at this time. Review of Systems Ten Systems: 10 systems reviewed and negative Constitutional: reports: Reviewed and negative Eyes: reports: Reviewed and negative Ears: reports: Reviewed and negative Nose: reports: Reviewed and negative Throat: reports: Reviewed and negative Cardiac: reports: Chest pain / pressure, Palpitations Respiratory: reports: Reviewed and negative GI: reports: Reviewed and negative : reports: Reviewed and negative Skin: reports: Reviewed and negative Musculoskeletal: reports: Reviewed and negative Neurologic: reports: Reviewed and negative Psychiatric: reports: Reviewed and negative Endocrine: reports: Reviewed and negative Immunocompromised: reports: Reviewed and negative PD PAST MEDICAL HISTORY - Past Medical History Past Medical History: Yes Cardiovascular: Hypertension Respiratory: None Endocrine/Autoimmune: Type 2 diabetes GI: Chronic diarrhea : Renal insuffiency HEENT: None Psych: Anxiety Musculoskeletal: Osteoarthritis, Osteoporosis Derm: None Other Past Medical History: hx of diaylsis - Past Surgical History Past Surgical History: Yes - Present Medications Home Medications: Ambulatory Orders Medication Instructions Recorded Confirmed Metformin HCl [Glumetza] 500 mg PO BID 12/25/12 12/31/19 Mycophenolate Mofetil [Cellcept] 250 mg PO BID 12/25/12 12/31/19 Ibandronate Sodium [Boniva] 150 mg PO ONCE 12/31/19 12/31/19 Levocetirizine Dihydrochloride 5 mg PO DAILY 12/31/19 12/31/19 [Xyzal] Magnesium Oxide [Magnesium] 400 mg PO DAILY 12/31/19 12/31/19 Pravastatin [Pravachol] 40 mg PO DAILY 12/31/19 12/31/19 Tacrolimus 1 mg PO BID 12/31/19 12/31/19 lisinopriL [Lisinopril] 20 mg PO DAILY 12/31/19 12/31/19 - Allergies Allergies/Adverse Reactions: Allergies Allergy/AdvReac Type Severity Reaction Status Date / Time Sulfa (Sulfonamide Allergy Intermediate Rash Verified 12/30/19 22:19 Antibiotics) - Social History Does the pt smoke?: No Smoking Status: Never smoker Does the pt drink ETOH?: No Does the pt have substance abuse?: No - Immunizations Immunizations are current?: Yes PD ED PE NORMAL - Vitals Vital signs reviewed: Yes - General General: Alert and oriented X 3, No acute distress, Well developed/nourished - HEENT HEENT: Atraumatic, PERRL, EOMI, Moist mucous membranes - Neck Neck: Supple, no meningeal sign - Cardiac Cardiac: No murmur, Strong equal pulses, Other (Highly irregular rate and rhythm.) - Respiratory Respiratory: No respiratory distress, Clear bilaterally - Abdomen Abdomen: Soft, Non tender, Non distended - Derm Derm: Normal color, Warm and dry, No rash - Extremities Extremities: No deformity, No edema, No calf tenderness / cord - Neuro Neuro: Alert and oriented X 3, census enumerator 2-12 intact, No motor deficit, No sensory deficit, Normal speech - Psych Psych: Normal mood, Normal affect Results - Vitals Vitals: Vital Signs - 24 hr 12/30/19 12/30/19 12/30/19 22:16 22:21 22:44 Temperature 37.2 C Heart Rate 180 H 106 H Respiratory 26 H 20 Rate Blood Pressure 164/86 H 161/91 H O2 Saturation 97 98 12/30/19 12/30/1920 22:45 23:11 00:03 Temperature Heart Rate 97 92 88 Respiratory 18 18 Rate Blood Pressure 127/74 131/74 H 134/74 H O2 Saturation 99 99 12/31/19 12/31/19 12/31/19 00:57 01:00 01:30 Temperature Heart Rate 84 84 79 Respiratory 19 18 18 Rate Blood Pressure 126/69 139/79 H 150/82 H O2 Saturation 99 99 98 12/31/19 12/31/19 12/31/19 02:00 02:56 03:14 Temperature Heart Rate 93 85 90 Respiratory 21 18 22 Rate Blood Pressure 139/68 H 149/82 H 153/77 H O2 Saturation 99 100 100 12/31/19 03:31 Temperature 36.6 C Heart Rate Respiratory Rate Blood Pressure O2 Saturation Oxygen O2 Source Room air - EKG (time done) 2214 Rate: Rate (enter#) (144) Rhythm: Atrial fibrillation Sanders: Normal QRS: LVH Ischemia: No: Normal ST segments (ST depression leads V4 through V6) Compare to prior EKG: Old EKG unavailable Computer interpretation: Agree with computer 2313 Rate: Rate (enter#) (88) Rhythm: NSR Sanders: Normal Intervals: Normal MN QRS: Normal Ischemia: ST depression (ST depression less than 1 mm in leads V4 and V5), T wave inversion (Lateral leads) - Labs Labs: Laboratory Tests 12/30/19 12/30/19 12/30/19 23:07 23:07 23:07 WBC 15.2 H RBC 4.10 L Hgb 11.9 L Hct 35.9 L MCV 87.6 MCH 29.0 MCHC 33.1 RDW 11.9 L Plt Count 271 MPV 9.2 Neut # (Auto) 9.6 H Lymph # (Auto) 3.7 H Faulk # (Auto) 0.8 Eos # (Auto) 0.9 H Baso # (Auto) 0.1 Absolute Nucleated RBC 0.00 Nucleated RBC % 0.0 Sodium 133 L Potassium 3.5 Chloride 99 L Carbon Dioxide 22 Anion Gap 12.0 BUN 18 Creatinine 0.8 Estimated GFR (MDRD) 72 L Glucose 176 H Calcium 8.8 Total Bilirubin 0.6 AST 48 H ALT 53 Alkaline Phosphatase 54 Troponin I High Sens 29.3 H* B-Natriuretic Peptide Total Protein 7.3 Albumin 4.2 Globulin 3.1 Albumin/Globulin Ratio 1.4 Lipase 72 H Blood Type Antibody Screen 12/30/19 12/30/19 12/31/19 23:07 23:30 01:10 WBC RBC Hgb Hct MCV MCH MCHC RDW Plt Count MPV Neut # (Auto) Lymph # (Auto) Faulk # (Auto) Eos # (Auto) Baso # (Auto) Absolute Nucleated RBC Nucleated RBC % Sodium Potassium Chloride Carbon Dioxide Anion Gap BUN Creatinine Estimated GFR (MDRD) Glucose Calcium Total Bilirubin AST ALT Alkaline Phosphatase Troponin I High Sens 113.8 H* B-Natriuretic Peptide 77 Total Protein Albumin Globulin Albumin/Globulin Ratio Lipase Blood Type A POSITIVE Antibody Screen NEGATIVE - Rads (name of study) cxr Radiology: Prelim report reviewed, EMP read indepedently, See rad report (nad) PD MEDICAL DECISION MAKING - ED course Complexity details: reviewed old records, reviewed results, re-evaluated patient, considered differential, d/w patient, d/w family ED course: The patient appeared reasonably well, but was noted in the emergency department to have atrial fibrillation with paroxysms of heart rate reaching into the 190s on the cardiac cath lab technologist. Narrow complex rhythm was noted. The patient did note that her chest pain would increase at these times. I felt the patient should have another dose of diltiazem and she was given 20 mg IV. This did result in conversion to a normal sinus rhythm with a rate steady in the 70s to 80s. The patient reported resolution of her chest pain. She remained in normal sinus rhythm throughout the remainder of her stay in the emergency department and had no further complaints. Patient's initial EKG showed ST depression in the lateral leads and her initial troponin was 29. I did feel the patient should have a repeat, and this was done and found to be 113. I spoke with Dr. Kinney, telephone surveyor on-call [facility] in [place], and he felt that the patient should be admitted to the hospital and plan to have cardiac c atheterization. He requested I speak with the hospitalist there to arrange primary admission. I spoke with Dr. Lion who agreed to accept the patient in transfer. The patient was started on heparin as per Dr. Kinney's request. She was also given aspirin. Her blood pressure and heart rate remained under control. The patient was agreeable to the plan for transfer. - Critical Care Time(min): 30 Comments: Upon my evaluation, this patient had a high probability of imminent or life- threatening deterioration, due to atrial fibrillation with RVR and non-ST elevation CA, which required my direct attention, intervention and personal management. Time Includes: Direct patient care, Review records, Reassess patient, Document care, Coordinate care, Medical consult, Family consult for tx dec, See progress note Data interpretation: Labs, Pulse ox, CXR, Prior EKG, Cardiac output, See progress note Departure - Departure Disposition: 02 Transfer Acute Care Hosp Clinical Impression: NSTEMI (non-ST elevated myocardial infarction), Atrial fibrillation with RVR Condition: Serious
[2019-12-31] MEDS ORDERED: ASPIRIN CHEW 81 MG TABLET PO STA (03:15)
[2019-12-31] MEDS ORDERED: HEPARIN 5,000 UNIT/ML VIAL IVP STA (03:15)
[2019-12-31] MEDS ORDERED: HEPARIN 25000UNITS/500ML (D5W) 25,000 UNIT/500 ML BAG IV STA (03:15)
[2019-12-31 05:02] VITALS: BP 148/83
--- NOTE | 2019-12-31 09:28 | XRAY Report ---
PROCEDURE: Chest 1 View X-Ray INDICATIONS: chest pain TECHNIQUE: One view of the chest was acquired. COMPARISON: Chest x-ray 12/17/2017 FINDINGS: Surgical changes and devices: None. Lungs and pleura: No pleural effusions or pneumothorax. Lungs are clear. Mediastinum: Mediastinal contours appear normal. Heart size is mildly prominent. Bones and chest wall: No suspicious bony lesions. Overlying soft tissues appear unremarkable. IMPRESSION: No acute pulmonary process. The above findings are concordant with preliminary report. Reviewed by: Bri Ocampo MD on 12/31/2019 9:26 AM PDT Approved by: Bri Ocampo MD on 12/31/2019 9:26 AM PDT Station ID: [id number]
== END 2019-12-31 05:25 | disposition short-term general hospital (02) ==
LOC: EDUNIT# → ED 22:13
DX: I48.91 Unspecified atrial fibrillation (principal); I21.4 Non-ST elevation (NSTEMI) myocardial infarction; I12.9 Hypertensive chronic kidney disease with stage 1 through stage 4 chronic kidney disease, or unspecified chronic kidney disease; E11.22 Type 2 diabetes mellitus with diabetic chronic kidney disease; N18.9 Chronic kidney disease, unspecified; Z94.0 Kidney transplant status; Z79.84 Long term (current) use of oral hypoglycemic drugs
CPT/HCPCS: 36415; 71045; 80053; 83690; 83880; 84484; 85025; 86850; 86900; 86901; 93005; 96374; 96375; 99285; 99291; A9270

== ENCOUNTER 2020-01-05 11:00 | Emergency (ER) | payer MEDICARE, OTHER ==
--- NOTE | 2020-01-05 11:28 | ED Physician Documentation ---
PD HPI CHEST PAIN - Stated complaint Stated Complaint: DIZZY/RACING HEART - Chief complaint Chief Complaint: Cardiac - History obtained from History obtained from: Patient - History of Present Illness Timing - onset: How many days ago (2) Timing - onset during: Light activity (she had fast rate atrial fib recently. Seen by Purchasing Agent 3 days ago in office and was NSR. started on Eliquis, and metoprolol 25 mg bid. She states she is feeling lightheaded since starting it. Also with itching/fine rash the past day.) Timing - details: Gradual onset, Still present Worsened by: Exertion Associated symptoms: Shortness of air Similar symptoms before: Has not had sx before Recently seen: Clinic Review of Systems Constitutional: denies: Fever Nose: denies: Rhinorrhea / runny nose, Congestion Throat: denies: Sore throat Cardiac: denies: Chest pain / pressure Respiratory: reports: Dyspnea PD PAST MEDICAL HISTORY - Past Medical History Cardiovascular: Hypertension Respiratory: None Endocrine/Autoimmune: Type 2 diabetes GI: Chronic diarrhea : Renal insuffiency HEENT: None Psych: Anxiety Musculoskeletal: Osteoarthritis, Osteoporosis Derm: None - Past Surgical History Past Surgical History: Yes - Present Medications Home Medications: Ambulatory Orders Medication Instructions Recorded Confirmed Metformin HCl [Glumetza] 500 mg PO BID 12/25/12 12/31/19 Mycophenolate Mofetil [Cellcept] 250 mg PO BID 12/25/12 12/31/19 Ibandronate Sodium [Boniva] 150 mg PO ONCE 12/31/19 12/31/19 Levocetirizine Dihydrochloride 5 mg PO DAILY 12/31/19 12/31/19 [Xyzal] Magnesium Oxide [Magnesium] 400 mg PO DAILY 12/31/19 12/31/19 Pravastatin [Pravachol] 40 mg PO DAILY 12/31/19 12/31/19 Tacrolimus 1 mg PO BID 12/31/19 12/31/19 lisinopriL [Lisinopril] 20 mg PO DAILY 12/31/19 12/31/19 - Allergies Allergies/Adverse Reactions: Allergies Allergy/AdvReac Type Severity Reaction Status Date / Time Sulfa (Sulfonamide Allergy Intermediate Rash Verified 01/05/20 11:11 Antibiotics) - Social History Does the pt smoke?: No Smoking Status: Never smoker Does the pt drink ETOH?: No Does the pt have substance abuse?: No - Immunizations Immunizations are current?: Yes PD ED PE NORMAL - Vitals Vital signs reviewed: Yes - General General: Alert and oriented X 3, No acute distress, Well developed/nourished - HEENT HEENT: Moist mucous membranes, Pharynx benign - Neck Neck: Supple, no meningeal sign, No adenopathy - Cardiac Cardiac: RRR, No murmur - Respiratory Respiratory: Clear bilaterally - Abdomen Abdomen: Soft, Non tender - Derm Derm: Normal color, Warm and dry - Neuro Neuro: Alert and oriented X 3, No motor deficit, Normal speech Results - Vitals Vitals: Vital Signs - 24 hr 01/05/20 01/05/20 01/05/20 11:11 11:44 12:59 Temperature 36.8 C Heart Rate 78 72 Heart Rate [ 74 Sitting] Heart Rate [ 74 Standing] Heart Rate [ 72 Supine] Respiratory 16 16 Rate Blood Pressure 165/71 H 142/86 H Blood Pressure 150/86 H [Sitting] Blood Pressure 151/82 H [Standing] Blood Pressure 146/85 H [Supine] O2 Saturation 98 99 01/05/20 01/05/20 13:13 13:15 Temperature 36.8 C Heart Rate 75 75 Heart Rate [ Sitting] Heart Rate [ Standing] Heart Rate [ Supine] Respiratory 16 16 Rate Blood Pressure 150/75 H 155/86 H Blood Pressure [Sitting] Blood Pressure [Standing] Blood Pressure [Supine] O2 Saturation 99 99 Oxygen O2 Source Room air - EKG (time done) 11:05 Rate: Rate (enter#) (81) Rhythm: NSR [place]: Normal Intervals: Normal MA QRS: Normal Ischemia: Normal ST segments. No: ST elevation c/w ischemia, ST depression - Labs Labs: Laboratory Tests 01/05/20 01/05/20 01/05/20 11:52 11:52 11:52 WBC 10.8 RBC 4.01 L Hgb 11.5 L Hct 33.7 L MCV 84.0 MCH 28.7 MCHC 34.1 RDW 11.9 L Plt Count 279 MPV 9.5 Neut # (Auto) 6.0 Lymph # (Auto) 3.3 [place] # (Auto) 0.8 Eos # (Auto) 0.6 Baso # (Auto) 0.1 Absolute Nucleated RBC 0.00 Nucleated RBC % 0.0 Sodium 133 L Potassium 4.0 Chloride 96 L Carbon Dioxide 23 Anion Gap 14.0 H BUN 15 Creatinine 0.8 Estimated GFR (MDRD) 72 L Glucose 135 H Calcium 9.8 Magnesium Total Bilirubin 0.6 AST 25 ALT 28 Alkaline Phosphatase 64 Troponin I High Sens 7.0 Total Protein 7.8 Albumin 4.4 Globulin 3.4 Albumin/Globulin Ratio 1.3 Lipase 54 H 01/05/20 11:52 WBC RBC Hgb Hct MCV MCH MCHC RDW Plt Count MPV Neut # (Auto) Lymph # (Auto) [place] # (Auto) Eos # (Auto) Baso # (Auto) Absolute Nucleated RBC Nucleated RBC % Sodium Potassium Chloride Carbon Dioxide Anion Gap BUN Creatinine Estimated GFR (MDRD) Glucose Calcium Magnesium 1.5 L Total Bilirubin AST ALT Alkaline Phosphatase Troponin I High Sens Total Protein Albumin Globulin Albumin/Globulin Ratio Lipase - Rads (name of study) chest xray Radiology: Prelim report reviewed (no acute process), See rad report PD MEDICAL DECISION MAKING - ED course Complexity details: considered differential (seems likely allergic reaction, with the lightheaded and itching. Lightheaded would be common side effect of the metoprolol and she is small person for 25 mg bid. Will decrease dose. Then with itching/hives, and would be more suspect of the Eliquis. ), d/w patient Departure - Departure Disposition: 01 Home, Self Care Clinical Impression: Itching due to drug, Lightheaded Condition: Stable Record reviewed to determine appropriate education?: Yes Follow-Up: Elvis Rincon DO [Primary Care Provider] - Comments: I would stop the blood thinner as this would be my most likely cause of the itchiness. You can start a baby aspirin daily instead for now. Decrease the new metoprolol medication to 12.5 mg daily for 3 or 4 days. If you are feeling well on that without any lightheadedness then increase to 12.5 mg (half tablet) twice daily. Hold at that dose for now. Call and talk with your oven tender bagels about the symptoms he had and if they have any other suggestions. Return if persistent symptoms generally. You could use some cetirizine or Benadryl daily for the next few days if you have continued itching. Discharge Date/Time: 01/05/20 13:16
[2020-01-05 11:59] LABS: BASOPHILS # (AUTO) 0.1 10^3/uL (0.0-0.1); BASOPHILS % (AUTO) 0.6 %; EOSINOPHILS # (AUTO) 0.6 10^3/uL (0.0-0.7); EOSINOPHILS % (AUTO) 5.6 %; HGB - HEMOGLOBIN 11.5 g/dL (12.0-16.0); LYMPHOCYTES # (AUTO) 3.3 10^3/uL (1.5-3.5); LYMPHOCYTES % (AUTO) 30.2 %; MEAN CORPUSCULAR HEMOGLOBIN 28.7 pg (27.0-31.0); MEAN CORPUSCULAR HGB CONC 34.1 g/dL (32.0-36.0); MEAN PLATELET VOLUME 9.5 fL (7.9-10.8); MONOCYTES # (AUTO) 0.8 10^3/uL (0.0-1.0); MONOCYTES % (AUTO) 7.1 %; NEUTROPHILS % (AUTO) 56.1 %; PLT - PLATELET COUNT 279 10^3/uL (130-450); RED BLOOD COUNT 4.01 10^6/uL (4.20-5.40); RED CELL DISTRIBUTION WIDTH 11.9 % (12.0-15.0); WHITE BLOOD COUNT 10.8 x10^3/uL (4.8-10.8)
[2020-01-05] MEDS ORDERED: CETIRIZINE 10 MG TABLET PO STA (12:02)
[2020-01-05] MEDS ORDERED: diphenhydrAMINE 25 MG CAPSULE PO STA (12:02)
[2020-01-05] MEDS ORDERED: CHERRY SYRUP 10 ML UDC PO ONE (12:03)
[2020-01-05] MEDS ORDERED: DEXAMETHASONE 10 MG/ML VIAL PO STA (12:03)
[2020-01-05 12:15] LABS: ALBUMIN 4.4 g/dL (3.2-5.5); ALBUMIN/GLOBULIN RATIO 1.3 (1.0-2.2); BILIRUBIN,TOTAL 0.6 mg/dL (0.2-1.0); CALCIUM 9.8 mg/dL (8.5-10.3); CREATININE 0.8 mg/dL (0.4-1.0); TOTAL PROTEIN 7.8 g/dL (6.7-8.2)
--- NOTE | 2020-01-05 12:30 | XRAY Report ---
PROCEDURE: Chest 1 View X-Ray INDICATIONS: Chest pain TECHNIQUE: One view of the chest was acquired. COMPARISON: Chest 12/30/2019. FINDINGS: Surgical changes and devices: None. Lungs and pleura: No pleural effusions or pneumothorax. Lungs are clear. Mediastinum: Mediastinal contours appear normal. Heart size is normal. Bones and chest wall: No suspicious bony lesions. Overlying soft tissues appear unremarkable. IMPRESSION: Source of chest pain is not seen. Reviewed by: Bronson Velasquez MD on 01/05/2020 12:28 PM PDT Approved by: rBonson Velasquez MD on 01/05/2020 12:28 PM PDT Station ID: [id number]
[2020-01-05 13:16] VITALS: BP 155/86
== END 2020-01-05 13:16 | disposition home or self-care (01) ==
LOC: ED 11:00
DX: L29.9 Pruritus, unspecified (principal); R42 Dizziness and giddiness; T44.7X5A Adverse effect of beta-adrenoreceptor antagonists, initial encounter; T45.7X5A Adverse effect of anticoagulant antagonists, vitamin K and other coagulants, initial encounter; I10 Essential (primary) hypertension; E11.9 Type 2 diabetes mellitus without complications; Z79.84 Long term (current) use of oral hypoglycemic drugs; I48.91 Unspecified atrial fibrillation
CPT/HCPCS: 36415; 71045; 80053; 83690; 83735; 84484; 85025; 93005; 99284; A9270

== ENCOUNTER 2020-02-02 08:24 | Outpatient (CLI) | payer MEDICARE, OTHER ==
[2020-02-02 11:47] LABS: BASOPHILS # (AUTO) 0.1 10^3/uL (0.0-0.1); BASOPHILS % (AUTO) 0.8 %; EOSINOPHILS # (AUTO) 0.6 10^3/uL (0.0-0.7); EOSINOPHILS % (AUTO) 6.9 %; HGB - HEMOGLOBIN 11.3 g/dL (12.0-16.0); LYMPHOCYTES # (AUTO) 2.9 10^3/uL (1.5-3.5); LYMPHOCYTES % (AUTO) 32.4 %; MEAN CORPUSCULAR HEMOGLOBIN 28.8 pg (27.0-31.0); MEAN CORPUSCULAR HGB CONC 32.8 g/dL (32.0-36.0); MEAN CORPUSCULAR VOLUME 87.8 fL (81.0-99.0); MEAN PLATELET VOLUME 9.6 fL (7.9-10.8); MONOCYTES # (AUTO) 0.6 10^3/uL (0.0-1.0); MONOCYTES % (AUTO) 6.4 %; NEUTROPHILS # (AUTO) 4.8 10^3/uL (1.5-6.6); NEUTROPHILS % (AUTO) 52.9 %; PLT - PLATELET COUNT 365 10^3/uL (130-450); RED BLOOD COUNT 3.92 10^6/uL (4.20-5.40); RED CELL DISTRIBUTION WIDTH 12.4 % (12.0-15.0); WHITE BLOOD COUNT 9.1 x10^3/uL (4.8-10.8)
[2020-02-02 11:52] LABS: ALBUMIN 4.3 g/dL (3.2-5.5); ALBUMIN/GLOBULIN RATIO 1.3 (1.0-2.2); BILIRUBIN,TOTAL 0.5 mg/dL (0.2-1.0); CALCIUM 9.9 mg/dL (8.5-10.3); CREATININE 0.8 mg/dL (0.4-1.0); TOTAL PROTEIN 7.5 g/dL (6.7-8.2)
== END 2020-02-02 23:59 | disposition home or self-care (01) ==
LOC: LAB.WCP 08:24
PROVIDERS: ATTEND Family Medicine
DX: K85.90 Acute pancreatitis without necrosis or infection, unspecified (principal)
CPT/HCPCS: 36415; 80053; 83690; 85025

== ENCOUNTER 2020-03-20 11:35 | Outpatient (CLI) | payer MEDICARE, OTHER ==
--- NOTE | 2020-03-20 16:24 | XRAY Report ---
PROCEDURE: Knee 3 View LT INDICATIONS: LT KNEE PAIN TECHNIQUE: 3 views of the left knee(s) were acquired. COMPARISON: None. FINDINGS: Bones: No fractures or dislocations. No suspicious bony lesions. Mild medial and patellofemoral co mpartment narrowing. Small periarticular osteophytes are present. Soft tissues: No joint effusion. No suspicious soft tissue calcifications. IMPRESSION: Early osteoarthritis most notably in the medial and patellofemoral compartments. Reviewed by: Bri Ocampo MD on 03/20/2020 4:22 PM PST Approved by: Bri Ocampo MD on 03/20/2020 4:22 PM PST Station ID: [id number]
== END 2020-03-20 11:36 | disposition home or self-care (01) ==
LOC: DI 11:35
PROVIDERS: ATTEND Family Medicine
DX: M17.12 Unilateral primary osteoarthritis, left knee (principal)

== ENCOUNTER 2020-03-23 11:25 | Outpatient (CLI) | payer MEDICARE, OTHER | END 2020-03-23 11:26 | disposition critical access hospital (66) | LOC: EMS 11:25 | PROVIDERS: ATTEND Surgery | DX: R00.2 Palpitations (principal) | CPT/HCPCS: A0425; A0427 ==

== ENCOUNTER 2020-03-23 11:47 | Observation (INO) | payer MEDICARE, OTHER ==
[2020-03-23 12:20] LABS: BILIRUBIN,URINE NEGATIVE (NEGATIVE); GLUCOSE, URINE (UA) NEGATIVE (NEGATIVE); KETONES,URINE (UA) NEGATIVE (NEGATIVE); LEUKOCYTE ESTERASE, URINE TRACE (NEGATIVE); NITRITE,URINE NEGATIVE (NEGATIVE); OCCULT BLOOD,URINE TRACE-INTA (NEGATIVE); PROTEIN,URINE 100 mg/dL (NEGATIVE); UROBILINOGEN,URINE 0.2 (NORMAL) E.U./dL (NORMAL)
[2020-03-23 12:27] LABS: BACTERIA,URINE None Seen /HPF (None Seen); CLARITY,URINE CLEAR (CLEAR); RBC,URINE 0-5 /HPF (0-5); SQUAMOUS EPITHELIAL CELL,UR MOD Squamous (<= Few)
[2020-03-23] MEDS ORDERED: LACTATED RINGERS 1,000 ML IV STA (12:48)
[2020-03-23] MEDS ORDERED: METOPROLOL 5 MG/5 ML VIAL IVP STA ×2 (12:53→15:21)
--- NOTE | 2020-03-23 13:01 | XRAY Report ---
PROCEDURE: Chest 1 View X-Ray INDICATIONS: Chest pain TECHNIQUE: One view of the chest was acquired. COMPARISON: 01/05/2020 chest radiograph FINDINGS: Surgical changes and devices: None. Lungs and pleura: No pleural effusions or pneumothorax. Lungs are clear. Mediastinum: Mediastinal contours appear normal. Heart size is normal. Bones and chest wall: No suspicious bony lesions. Overlying soft tissues appear unremarkable. IMPRESSION: No acute cardiopulmonary process demonstrated. Reviewed by: David Purdy MD on 03/23/2020 1:00 PM [facility] Approved by: David Purdy MD on 03/23/2020 1:00 PM PST Station ID: [id number]
[2020-03-23 13:07] LABS: BASOPHILS # (AUTO) 0.1 10^3/uL (0.0-0.1); BASOPHILS % (AUTO) 0.8 %; EOSINOPHILS # (AUTO) 0.4 10^3/uL (0.0-0.7); EOSINOPHILS % (AUTO) 5.2 %; HGB - HEMOGLOBIN 12.9 g/dL (12.0-16.0); LYMPHOCYTES # (AUTO) 2.3 10^3/uL (1.5-3.5); LYMPHOCYTES % (AUTO) 29.4 %; MEAN CORPUSCULAR HEMOGLOBIN 27.7 pg (27.0-31.0); MEAN CORPUSCULAR HGB CONC 32.3 g/dL (32.0-36.0); MEAN CORPUSCULAR VOLUME 85.8 fL (81.0-99.0); MEAN PLATELET VOLUME 9.2 fL (7.9-10.8); MONOCYTES # (AUTO) 0.5 10^3/uL (0.0-1.0); MONOCYTES % (AUTO) 6.5 %; NEUTROPHILS # (AUTO) 4.6 10^3/uL (1.5-6.6); NEUTROPHILS % (AUTO) 57.7 %; PLT - PLATELET COUNT 309 10^3/uL (130-450); RED BLOOD COUNT 4.65 10^6/uL (4.20-5.40); RED CELL DISTRIBUTION WIDTH 11.9 % (12.0-15.0)
[2020-03-23 13:19] LABS: ALBUMIN 4.6 g/dL (3.2-5.5); ALBUMIN/GLOBULIN RATIO 1.2 (1.0-2.2); BILIRUBIN,TOTAL 0.4 mg/dL (0.2-1.0); CALCIUM 9.5 mg/dL (8.5-10.3); CREATININE 0.6 mg/dL (0.4-1.0); MAGNESIUM 1.8 mg/dL (1.7-2.8); TOTAL PROTEIN 8.5 g/dL (6.7-8.2)
[2020-03-23] MEDS ORDERED: POTASSIUM CHLOR 10 MEQ/100 ML 10 MEQ/100 ML BAG IV ONE (13:35)
--- NOTE | 2020-03-23 15:27 | ED Physician Documentation ---
PD HPI CHEST PAIN - Stated complaint Stated Complaint: PALPITATIONS - Chief complaint Chief Complaint: Cardiac - History obtained from History obtained from: Patient, Family, EMS - History of Present Illness Timing - onset: How many days ago (2-3 days) Timing - onset during: Rest, Light activity Timing - duration: Seconds (just 10-20 seconds at a time, feeling okay in between) Timing - details: Abrupt onset, Intermittant Quality: Tightness Location: Substernal Associated symptoms: Nausea, Feeling faint / dizzy, Palpitations. No: Shortness of air, Diaphoresis Similar symptoms before: Diagnosis (atrial fib episodes. Had heart cath recently (months ago) with no occlusions per patient and confirmed Cardiology resource room special education teacher [facility].) Recently seen: Not recently seen Review of Systems Constitutional: denies: Fever Nose: denies: Rhinorrhea / runny nose, Congestion Throat: denies: Sore throat Respiratory: denies: Cough Neurologic: reports: Generalized weakness, Near syncope (just with the episodes, not intervening times.). 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 MARKETING: None : Renal insuffiency HEENT: None Psych: Anxiety Musculoskeletal: Osteoarthritis, Osteoporosis Derm: None - Past Surgical History Past Surgical History: Yes - Present Medications Home Medications: Ambulatory Orders Medication Instructions Recorded Confirmed Ibandronate Sodium [Boniva] 150 mg PO .MONTHLY 12/31/19 12/31/19 Levocetirizine Dihydrochloride 5 mg PO DAILY 12/31/19 12/31/19 [Xyzal] Magnesium Oxide [Magnesium] 400 mg PO DAILY 12/31/19 12/31/19 Pravastatin [Pravachol] 40 mg PO QPM 12/31/19 12/31/19 Tacrolimus 2 mg PO BID 12/31/19 12/31/19 lisinopriL [Lisinopril] 20 mg PO DAILY 12/31/19 12/31/19 Apixaban [Eliquis] 2.5 mg PO BID 03/23/20 Aspirin EC [Ecotrin] 81 mg PO DAILY 03/23/20 Losartan [Cozaar] 25 mg PO DAILY 03/23/20 Metoprolol Tartrate [Lopressor] 25 mg PO BID 03/23/20 metFORMIN [Glucophage] 500 mg PO BID 03/23/20 mycophenolate mofetiL 250 mg PO BID 03/23/20 [Mycophenolate Mofetil] - Allergies Allergies/Adverse Reactions: Allergies Allergy/AdvReac Type Severity Reaction Status Date / Time Sulfa (Sulfonamide Allergy Intermediate Rash Verified 03/23/20 11:57 Antibiotics) - Social History Does the pt smoke?: No Smoking Status: Never smoker Does the pt drink ETOH?: No Does the pt have substance abuse?: No - Immunizations Immunizations are current?: Yes - POLST Patient has POLST: No PD ED PE NORMAL - General General: Alert and oriented X 3, Well developed/nourished, Other (somewhat frail) - Neck Neck: Supple, no meningeal sign, No adenopathy - Cardiac Cardiac: RRR, No murmur - Respiratory Respiratory: Clear bilaterally - Abdomen Abdomen: Soft, Non tender - Back Back: No CVA TTP - Derm Derm: Normal color, Warm and dry - Extremities Extremities: No edema, No calf tenderness / cord - Neuro Neuro: Alert and oriented X 3, No motor deficit, Normal speech Eye Opening: Spontaneous Motor: Obeys Commands Verbal: Oriented GCS Score: 15 Results - Vitals Vitals: Vital Signs - 24 hr 03/23/20 03/23/20 03/23/20 11:46 12:15 13:05 Temperature 37.1 C Heart Rate 83 91 73 Respiratory 18 18 19 Rate Blood Pressure 201/101 H 167/97 H 173/86 H O2 Saturation 99 99 98 03/23/20 03/23/20 03/23/20 13:06 13:20 13:30 Temperature Heart Rate 80 68 74 Respiratory 19 14 18 Rate Blood Pressure 190/91 H 148/81 H 161/84 H O2 Saturation 98 98 98 03/23/20 03/23/20 03/23/20 13:40 13:59 14:14 Temperature Heart Rate 75 70 71 Respiratory 19 19 15 Rate Blood Pressure 161/78 H 153/79 H 160/85 H O2 Saturation 99 99 99 03/23/20 03/23/20 03/23/20 15:20 15:30 15:49 Temperature Heart Rate 74 73 80 Respiratory 16 16 18 Rate Blood Pressure 193/82 H 193/82 H 188/97 H O2 Saturation 100 100 100 03/23/20 03/23/20 15:50 16:00 Temperature Heart Rate 73 67 Respiratory 18 18 Rate Blood Pressure 176/80 H 172/81 H O2 Saturation 98 100 Oxygen O2 Source Room air - EKG (time done) 11:48 Rate: Rate (enter#) (78) Rhythm: NSR [place]: Normal Ischemia: ST depression, T wave inversion Compare to prior EKG: Unchanged from prior EKG (01/06/20) - Labs Labs: Laboratory Tests 03/23/20 03/23/20 03/23/20 12:00 12:42 12:42 WBC 8.0 RBC 4.65 Hgb 12.9 Hct 39.9 MCV 85.8 MCH 27.7 MCHC 32.3 RDW 11.9 L Plt Count 309 MPV 9.2 Neut # (Auto) 4.6 Lymph # (Auto) 2.3 [place] # (Auto) 0.5 Eos # (Auto) 0.4 Baso # (Auto) 0.1 Absolute Nucleated RBC 0.00 Nucleated RBC % 0.0 Sodium 138 Potassium 3.7 Chloride 99 L Carbon Dioxide 23 Anion Gap 16.0 H BUN 15 Creatinine 0.6 Estimated GFR (MDRD) 100 Glucose 143 H Calcium 9.5 Magnesium 1.8 Total Bilirubin 0.4 AST 33 ALT 37 Alkaline Phosphatase 61 B-Natriuretic Peptide Total Protein 8.5 H Albumin 4.6 Globulin 3.9 Albumin/Globulin Ratio 1.2 Lipase 52 H Urine Color YELLOW Urine Clarity CLEAR Urine pH 7.0 Ur Specific [place] 1.015 Urine Protein 100 H Urine Glucose (UA) NEGATIVE Urine Ketones NEGATIVE Urine Occult Blood TRACE-INTA Urine Nitrite NEGATIVE Urine Bilirubin NEGATIVE Urine Urobilinogen 0.2 (NORMAL) Ur Leukocyte Esterase TRACE H Urine RBC 0-5 Urine WBC 0-3 Ur Squamous Epith Cells MOD Squamous H Urine Bacteria None Seen 03/23/20 12:42 WBC RBC Hgb Hct MCV MCH MCHC RDW Plt Count MPV Neut # (Auto) Lymph # (Auto) [place] # (Auto) Eos # (Auto) Baso # (Auto) Absolute Nucleated RBC Nucleated RBC % Sodium Potassium Chloride Carbon Dioxide Anion Gap BUN Creatinine Estimated GFR (MDRD) Glucose Calcium Magnesium Total Bilirubin AST ALT Alkaline Phosphatase B-Natriuretic Peptide 220 H Total Protein Albumin Globulin Albumin/Globulin Ratio Lipase Urine Color Urine Clarity Urine pH Ur Specific [place] Urine Protein Urine Glucose (UA) Urine Ketones Urine Occult Blood Urine Nitrite Urine Bilirubin Urine Urobilinogen Ur Leukocyte Esterase Urine RBC Urine WBC Ur Squamous Epith Cells Urine Bacteria - Rads (name of study) chest xray Radiology: Prelim report reviewed (no acute process), See rad report PD MEDICAL DECISION MAKING - ED course Complexity details: reviewed results, re-evaluated patient, considered differential (had episode of abrupt atrial fib to 160-180 rate, with symptoms of lightheaded, that lasted just 20-30 seconds, then back. Given IV Metoprolol and seemed okay. But then another episode. ), d/w patient, d/w gis consultant (Dr. Barth, resource room special education teacher for [facility] Card[facility], who said just increased Metoprolol to double current (since only 25 bid), and would not add antiarrhythmic at this time. Could decrease EDEN if concerned about BP. ) ED course: Still with intermittent fast fib with symptoms. Needs to establish better dose of beta andre. I am concerned for her symptoms with the episodes and feel she needs to be monitored for HR and BP initially with increased dose Metoprolol to ensure working well enough. s/w Hospitalist, who wanted me to consult her Cardiology group first, to see if rate reduction only or 2nd med of antiarrhythmic. Departure - Departure Disposition: ED Place in Observation Clinical Impression: Intermittent atrial fibrillation, Near syncope Condition: Stable Record reviewed to determine appropriate education?: Yes Discharge Date/Time: 03/23/20 16:36
[2020-03-23] MEDS ORDERED: ACETAMINOPHEN 325 MG TABLET PO PRN (16:12)
[2020-03-23] MEDS ORDERED: SODIUM CHLORIDE FLUSH 0.9% 10 ML SYRINGE IVP PRN (16:12)
[2020-03-23] MEDS ORDERED: ONDANSETRON 4 MG/2 ML VIAL IVP PRN (16:12)
[2020-03-23] MEDS: SODIUM CHLORIDE FLUSH 0.9% 10 ML SYRINGE IVP SCH (17:30)
[2020-03-23] MEDS: INSULIN ASPART 300 UNIT/3 ML PEN SUBQ SCH ×2 (17:30→21:42)
--- NOTE | 2020-03-23 19:07 | HISTORY & PHYSICAL EXAMINATION ---
DATE OF SERVICE: 03/20/2020 Physician: Anabel Vega MD HISTORY OF PRESENT ILLNESS: This is a 65-year-old white female who is a diabetic and takes metformin, has a history of hypertension, has a history of renal transplant, on immunosuppressive therapy. In December of this year, she came to the ER for complaints of chest pain associated with palpitations. She was witnessed to have paroxysms of atrial fibrillation with rates in the 170s and received heart rate slowing medicines with Cardizem. This resolved her chest pain and palpitations. Her troponin values, however, more than doubled and she was transferred from the ER to [facility] in [place] for Cardiology evaluation. According to the patient, she had normal coronary arteries found. The patient was back in the emergency room several days after that discharge with complaints of itchiness and lightheadedness, and was thought to be on excessive doses of medications, which were decreased. The patient presents now with symptoms similar to that first December ER presentation, which include palpitations associated with chest pain. She called an ambulance and EMS documented her to have her symptoms during atrial fibrillation with a rapid rate. In the ER, she has had 2 episodes of palpitations with chest pain that were associated with atrial fibrillation with rapid ventricular response seen on telemetry. She received beta andre IV pushes x2. The emergency room doctor called her Manager Primary, Dr. Yeboah, and his covering Manager Primary advised that she have management with increased medicines for heart rate control. He did not necessarily advise antiarrhythmic yet. The patient also does take Eliquis. When she has no symptoms, she is comfortable and in no distress. PAST MEDICAL HISTORY: Diabetes, on metformin, hypertension, renal transplant, paroxysmal atrial fibrillation. ALLERGIES: SULFA. MEDICATIONS: 1. Metoprolol tartrate 25 mg b.i.d. 2. Eliquis 2.5 mg b.i.d. 3. Xyzal, unknown dose. 4. Lisinopril 20 mg daily. 5. Magnesium oxide 400 mg daily. 6. Metformin 500 mg b.i.d. 7. Mycophenolate mofetil 250 mg, unknown frequency. 8. Pravachol 40 mg every night. 9. Tacrolimus 1 mg every day. FAMILY HISTORY: No inherited cardiac disease. SOCIAL HISTORY: The patient is a nonsmoker, who never smoked, drinks no alcohol. No illicit drug use history. She lives with her , but she "feels like she lives alone" because he works the quality assurance manager and is asleep when she is awake. REVIEW OF SYSTEMS: A comprehensive review of systems was performed and the pertinent positives are listed, the rest are negative. PHYSICAL EXAM: GENERAL: Thin female in no distress. VITAL SIGNS: Blood pressure 193/82, now improved to 172/81, heart rate of 67 in sinus rhythm, but when she has atrial fibrillation, HR goes as high as 130-170. HEENT: Unremarkable. NECK: No JVD or thyromegaly. CHEST: Clear. HEART: Normal heart sounds. No murmur. ABDOMEN: Soft, nontender. EXTREMITIES: No clubbing, cyanosis or edema. NEUROLOGIC: Grossly intact. LABORATORY DATA: Normal sodium and potassium. Anion gap mildly up at 16, BUN 15, creatinine 0.6, glucose 143, magnesium 1.8. Normal liver tests. BNP 220. There is no prior BNP for comparison. CBC is normal. Her INR was not done. Her urinalysis shows squamous cells and high protein and trace leukocyte esterase. Has had her TSH drawn many times, the most recent was December, they have all been normal. CHEST X-RAY: No active pulmonary disease. EKG: Normal sinus rhythm, rate of 78, LVH with strain pattern, which is similar to her EKG from December when she was in sinus rhythm. IMPRESSION/DIAGNOSES 1. Paroxysmal atrial fibrillation. 2. Atrial fibrillation with rapid ventricular response. 3. Lightheadedness. 4. Kidney transplant. 5. Hypertension. 6. Diabetes mellitus. PLAN: Place the patient in Observation status on telemetry to manage medication adjustments for controlling her heart rate when she goes into atrial fibrillation or suppressing the atrial fibrillation. The initial plan will be to change her fast acting metoprolol tartrate twice daily to long-acting metoprolol succinate twice daily. Continue with her Eliquis; however, the dose should be adjusted to 5 mg b.i.d. for proper dosing in this 65-year-old who has a normal creatinine. Check a TSH level to rule out hyperthyroidism. Obtain records regarding the angiogram findings and the last office visit with her Manager Primary, which was after the angio. Continue with her medication for immunosuppression for of her renal transplant. Order diabetic diet, sliding scale insulin while here for coverage and hold the metformin in case of MINGO. Continue blood pressure medication. It may require that one of her blood pressure meds like the EDEN inhibitor will be discontinued in order to increase the amount of beta blockers she takes, to control rapid rates. DEEP VENOUS THROMBOSIS: PROPHYLAXIS: Pharmacotherapy with her Eliquis. CODE STATUS: FULL CODE. ATTESTATION: Patient is expected to be discharged or transferred to another facility within 96 hours: Yes. cc: Elvis Rincon DO TD: 03/23/2020 16:54 MTDD
[2020-03-23] MEDS: FAMOTIDINE 20 MG TABLET PO SCH (20:10)
[2020-03-23] MEDS: METOPROLOL SUCCINATE 25 MG TABLET PO SCH (20:10)
[2020-03-23] MEDS: APIXABAN 5 MG TABLET PO SCH (21:38)
[2020-03-23] MEDS: TACROLIMUS 0.5 MG CAPSULE PO SCH (21:38)
[2020-03-23] MEDS: mycophenolate mofetiL 250 MG CAPSULE PO SCH (21:38)
[2020-03-24] MEDS: SODIUM CHLORIDE FLUSH 0.9% 10 ML SYRINGE IVP SCH ×2 (01:15→08:52)
[2020-03-24] MEDS: INSULIN ASPART 300 UNIT/3 ML PEN SUBQ SCH ×2 (07:53→11:42)
[2020-03-24] MEDS: APIXABAN 5 MG TABLET PO SCH (08:50)
[2020-03-24] MEDS: METOPROLOL SUCCINATE 25 MG TABLET PO SCH (08:50)
[2020-03-24] MEDS: TACROLIMUS 0.5 MG CAPSULE PO SCH (08:51)
[2020-03-24] MEDS: FAMOTIDINE 20 MG TABLET PO SCH (08:51)
[2020-03-24] MEDS: mycophenolate mofetiL 250 MG CAPSULE PO SCH (08:51)
[2020-03-24 10:26] LABS: HEMOGLOBIN A1c% 6.8 % (4.27-6.07)
--- NOTE | 2020-03-24 11:04 | PHARMACY PROGRESS NOTE ---
- Best Possible Medication History Admit Date and Time: 03/23/20 1611 Processed by: Pharmacy Patient Interview: Completed Secondary Source(s): Physician records (PATIENT INTERVIEWED [employer]EL [employer]NER. PATIENT ABLE TO CONFIRM HOME MEDICATIONS ), Pharmacy records, Insurance records As the person ultimately responsible for medication therapy, providers are able to order a medication from an existing home medication list in [facility] via the "Reconcile Routine" prior to Confirmation of that medication by clinical support tech. Such practice is discouraged except when the physician, in their clinical judgment, deems that a medical need exists for a medication without regard to previous use.
[2020-03-24 13:17] VITALS: BP 194/82
--- NOTE | 2020-03-24 13:35 | Discharge Plan ---
Discharge Plan Problem Reviewed?: Yes Disposition: Home Health Service Condition: Stable Prescriptions: Apixaban [Eliquis] 5 mg PO BID #60 tablet Metoprolol Succinate [Toprol Xl] 25 mg PO BID #60 tablet Diet: Low Sodium Activity Restrictions: Activity as Tolerated Shower Restrictions: No Assistance Devices: [facility] Concerns: You were hospitalized in Observation status to evaluate how to adjust your medicines for the bursts of rapid A. fib that give you symptoms of chest pain and dizziness. We adjusted your Metoprolol Tartrate to a different type of Metoprolol that is long-acting, and this appears to have suppressed your A.fib. Your Eliquis dose was also adjusted. You were evaluated by Physical Therapy and Occupational Therapy for your weakness and concerns about living alone. A Home Health referral was advised to have a physical therapist and occupant therapist and bath aide come into your house for your assistance and for strengthening. The hospital Lightning Rod Installer also met with you about progression toward care with NONA. You are being discharged on slightly different medications, and the new prescriptions were electronically sent to your [facility] pharmacy in [place]. You may use up the Eliquis you have at home by doubling up its dose: the proper dose for you is 5 mg twice a day. Please do not use the Metoprolol Tartrate anymore. Please use Metoprolol Succinate. All other medications and management will stay the same. You should see Dr. Yeboah for Cardiology follow-up, sooner than the planned May appointment. Summary of this hospital stay was sent to him and to your PCP. Plan of Treatment: As above. Care Goals: Improvement in symptoms and stabilization are the goals. Assessment: Patient understands and is agreeable with the plan. Additional Instructions or Follow Up instructions: If you have any new or worsening symptoms, call your Dr Rincon or Dr. Yeboah for advice, or come to the ER. No Smoking: If you smoke, Please STOP! Call for help. Follow-up with: Elvis Rincon DO [Primary Care Provider] -
--- NOTE | 2020-03-24 13:51 | DISCHARGE SUMMARY ---
Discharge Summary Admit Date: 03/23/20 Discharge Date: 03/24/20 Discharging Provider: Dr Anabel Vega Primary Care Provider: Dr Elvis Rincon and Dr Yeboah (Cardiology, [place]) Condition at Discharge: Stable Discharge Disposition: [facility] History of Present Illness: Three This is a 65-year-old female of [place] descent who has a history of diabetes, hypertension, renal transplant 19 years ago and is on immunotherapy. Three months ago she presented here with palpitations associated with chest pain and was found to be in rapid A. fib. Her troponin levels doubled and she was transferred from our ER to [facility] in [place] for cardiac eval uation. She underwent a cardiac catheterization that showed normal coronary arteries. She has seen Dr. Yeboah for Cardiology follow-up. Over the last 1 week she has had recurrence of those same symptoms with palpitations associated with chest pain and dizziness. She came to the ER with that complaint and had 2 episodes of witnessed paroxysms of rapid A. fib. She received IV beta-andre x1 and the ER doctor reached out to Dr. Yeboah and his partner called back, advising we should keep her in Observation status, on telemetry for increasing her meds for rate control, but not to start antiarrhythmics however. - HOSPITAL COURSE Hospital Course: 1) Paroxysmal A. fib The patient is not hyperthyroid and has had excellent recent evaluation ruling out coronary disease. It appears that her uncontrolled hypertension may be causing her to have paroxysms of A. fib. With these med adjustments for rate control (see #2), her blood pressure may also be under better control. 2) Atrial fibrillation with rapid ventricular response The Metoprolol Tartrate was stopped and she was put on Metoprolol Succinate 25 twice daily. With this treatment, there were no paroxysms of A. fib whatsoever on telemetry, neither at rest or with activity (Physical Therapy walked her in the hallway). She was discharged on new Metoprolol Succinate 25 twice daily. Also her Eliquis dose of 2.5 mg twice daily is incorrect for a 65-year-old with normal creatinine. Her Eliquis dose was increased to 5 mg twice daily. The patient was advised to see her Heating Unit Mechanic sooner than her May 2020 scheduled appointment, as she may benefit from an antiarrhythmic such as Fle cainide for better suppression of her paroxysms of A. fib (given that she has a normal heart structurally, and normal coronary arteries). 3) HTN Patient had elevated blood pressure at presentation which slowly improved. She also had episodes of high blood pressure noted here as high as 190-200 systolic when she was "scared". 4) Kidney transplant She was kept on her same immunotherapy meds. 5) DM She was on a carb-controlled diet and sliding scale insulin; at discharge her Metformin and diabetic diet was advised to be resumed. 6) Weakness Patient reported that she was "scared to live alone". 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 She no longer drives a car because of "making mistakes". Her son and daughter visit her but mostly she does everything alone. She is afraid of falling at home, she said. She was therefore evaluated by Physical Therapy and Occupational Therapy and found to be weak, using a walker was advised. Recommendations were for Home Health referral for PT, OT and a bath Aide, which was ordered. Social Work also met with her (and daughter at bedside) regarding getting Life Line at home. - ALLERGIES Allergies/Adverse Reactions: Allergies Allergy/AdvReac Type Severity Reaction Status Date / Time Sulfa (Sulfonamide Allergy Intermediate Rash Verified 03/23/20 11:57 Antibiotics) - MEDICATIONS Home Medications: Ambulatory Orders Medication Instructions Recorded Confirmed Ibandronate Sodium [Boniva] 150 mg PO .MONTHLY 12/31/19 03/24/20 Magnesium Oxide [Magnesium] 400 mg PO DAILY 12/31/19 03/24/20 Pravastatin [Pravachol] 40 mg PO QPM 12/31/19 03/24/20 Tacrolimus 2 mg PO BID 12/31/19 03/24/20 Losartan [Cozaar] 25 mg PO DAILY 03/23/20 03/24/20 metFORMIN [Glucophage] 500 mg PO BID 03/23/20 03/24/20 mycophenolate mofetiL 250 mg PO BID 03/23/20 03/24/20 [Mycophenolate Mofetil] Acetaminophen [Tylenol] 325 mg PO DAILY PRN 03/24/20 03/24/20 Apixaban [Eliquis] 5 mg PO BID #60 tablet 03/24/20 Docusate Sodium 100Mg Capsule 100 mg PO PRN PRN 03/24/20 03/24/20 [Colace 100Mg Capsule] Metoprolol Succinate [Toprol Xl] 25 mg PO BID #60 tablet 03/24/20 - PHYSICAL EXAM AT DISCHARGE General Appearance: positive: No acute distress, Alert Eyes Bilateral: positive: Normal inspection, EOMI ENT: positive: ENT inspection nml, No signs of dehydration Neck: positive: Nml inspection, No JVD Respiratory: positive: No respiratory distress, Breath sounds nml Cardiovascular: positive: Regular rate & rhythm, No murmur Abdomen: positive: Non-tender, No distention Skin: positive: Warm, Dry Extremities: positive: Non-tender, No pedal edema Neurologic/Psychiatric: positive: Oriented x3, Motor nml - LABS Result Diagrams: 03/23/20 12:42 03/23/20 12:42 - DIAGNOSTIC IMAGING Diagnostic Imaging Results: Final report reviewed - FOLLOW UP Follow Up: See Cardiology soon, see PCP per routine. - TIME SPENT Time Spent in Discharge (Minutes): 30
== END 2020-03-24 15:10 | disposition home health service (06) ==
LOC: EDUNIT# → ED 11:47 → MS2 16:11
PROVIDERS: ADMIT Internal Medicine; ATTEND Internal Medicine
DX: I48.0 Paroxysmal atrial fibrillation (principal); Z79.01 Long term (current) use of anticoagulants; I10 Essential (primary) hypertension; Z94.0 Kidney transplant status; E11.9 Type 2 diabetes mellitus without complications; Z79.84 Long term (current) use of oral hypoglycemic drugs; Z79.899 Other long term (current) drug therapy; R53.1 Weakness; Z20.828 Contact with and (suspected) exposure to other viral communicable diseases
CPT/HCPCS: 36415; 71045; 80053; 81001; 83036; 83690; 83735; 83880; 85025; 93005; 96365; 96375; 96376; 97161; 97165; 99284; 99285; A9270; G0378; J7120; U0004; 84484

== ENCOUNTER 2020-07-31 07:00 | Outpatient (CLI) | payer MEDICARE, OTHER ==
[2020-07-31 12:55] LABS: BASOPHILS # (AUTO) 0.1 10^3/uL (0.0-0.1); BASOPHILS % (AUTO) 0.7 %; EOSINOPHILS # (AUTO) 0.5 10^3/uL (0.0-0.7); EOSINOPHILS % (AUTO) 4.5 %; HCT - HEMATOCRIT 37.1 % (37.0-47.0); HGB - HEMOGLOBIN 12.1 g/dL (12.0-16.0); LYMPHOCYTES # (AUTO) 3.6 10^3/uL (1.5-3.5); LYMPHOCYTES % (AUTO) 35.8 %; MEAN CORPUSCULAR HEMOGLOBIN 28.7 pg (27.0-31.0); MEAN CORPUSCULAR HGB CONC 32.6 g/dL (32.0-36.0); MEAN CORPUSCULAR VOLUME 88.1 fL (81.0-99.0); MEAN PLATELET VOLUME 10.1 fL (7.9-10.8); MONOCYTES # (AUTO) 0.5 10^3/uL (0.0-1.0); MONOCYTES % (AUTO) 5.3 %; NEUTROPHILS # (AUTO) 5.3 10^3/uL (1.5-6.6); NEUTROPHILS % (AUTO) 53.3 %; PLT - PLATELET COUNT 313 10^3/uL (130-450); RED BLOOD COUNT 4.21 10^6/uL (4.20-5.40); RED CELL DISTRIBUTION WIDTH 12.2 % (12.0-15.0); WHITE BLOOD COUNT 9.9 x10^3/uL (4.8-10.8)
[2020-07-31 14:15] LABS: ALBUMIN 4.4 g/dL (3.2-5.5); ALBUMIN/GLOBULIN RATIO 1.2 (1.0-2.2); ALKALINE PHOSPHATASE 53 IU/L (42-121); ALT ALANINE AMINOTRANSFERASE 19 IU/L (10-60); AST ASPARTATE AMINOTRANSFERASE 20 IU/L (10-42); BILIRUBIN,TOTAL 0.5 mg/dL (0.2-1.0); BUN - BLOOD UREA NITROGEN 22 mg/dL (6-20); CALCIUM 9.3 mg/dL (8.5-10.3); CARBON DIOXIDE - CO2 23 mmol/L (21-32); CHLORIDE 103 mmol/L (101-111); CHOL/HDL RATIO 3.8 (<4.4); CHOLESTEROL 183 mg/dL; CREATININE 0.8 mg/dL (0.4-1.0); GFR - MDRD 72 (>89); GLUCOSE 150 mg/dL (70-100); HDL CHOLESTEROL 48 mg/dL; LDL CHOLESTEROL,CALCULATED 83 mg/dL; LDL/HDL RATIO 1.7 (<4.4); POTASSIUM 3.8 mmol/L (3.5-5.0); SODIUM 135 mmol/L (135-145); TOTAL PROTEIN 8.1 g/dL (6.7-8.2); TRIGLYCERIDES 258 mg/dL; VLDL CHOLESTEROL 52 mg/dL
[2020-07-31 14:25] LABS: ESTIMATED AVERAGE GLUCOSE 160 mg/dL (70-100); HEMOGLOBIN A1c% 7.2 % (4.27-6.07)
== END 2020-07-31 23:59 | disposition home or self-care (01) ==
LOC: LAB.WCP 07:00
PROVIDERS: ATTEND Family Medicine
DX: E11.9 Type 2 diabetes mellitus without complications (principal); D70.9 Neutropenia, unspecified; N05.9 Unspecified nephritic syndrome with unspecified morphologic changes; D63.1 Anemia in chronic kidney disease; T86.10 Unspecified complication of kidney transplant
CPT/HCPCS: 36415; 80053; 80061; 80197; 83036; 83721; 85025

== ENCOUNTER 2020-08-10 11:34 | Outpatient (CLI) | payer MEDICARE, OTHER ==
[2020-08-10 12:15] LABS: MAGNESIUM 1.4 mg/dL (1.7-2.8)
== END 2020-08-10 11:35 | disposition home or self-care (01) ==
LOC: LAB 11:34
PROVIDERS: ATTEND Internal Medicine Nephrology
DX: E83.40 Disorders of magnesium metabolism, unspecified (principal); K85.90 Acute pancreatitis without necrosis or infection, unspecified; E87.5 Hyperkalemia
CPT/HCPCS: 36415; 83690; 83735; 84132

== ENCOUNTER 2020-08-22 12:15 | Outpatient (CLI) | payer MEDICARE, OTHER | END 2020-08-22 23:59 | disposition home or self-care (01) | LOC: LAB.R 12:15 | PROVIDERS: ATTEND Family Medicine | DX: R50.9 Fever, unspecified (principal); Z20.822 Contact with and (suspected) exposure to COVID-19 ==

== ENCOUNTER 2020-10-04 11:44 | Outpatient (CLI) | payer MEDICARE, OTHER | END 2020-10-04 11:45 | disposition home or self-care (01) | LOC: LAB 11:44 | PROVIDERS: ATTEND Internal Medicine Nephrology | DX: K85.90 Acute pancreatitis without necrosis or infection, unspecified (principal) | CPT/HCPCS: 36415; 83690 ==

== ENCOUNTER 2020-10-23 08:18 | Outpatient (CLI) | payer MEDICARE, OTHER ==
[2020-10-23 08:40] LABS: BASOPHILS # (AUTO) 0.1 10^3/uL (0.0-0.1); BASOPHILS % (AUTO) 1.1 %; EOSINOPHILS # (AUTO) 0.6 10^3/uL (0.0-0.7); EOSINOPHILS % (AUTO) 5.9 %; HCT - HEMATOCRIT 35.7 % (37.0-47.0); HGB - HEMOGLOBIN 11.6 g/dL (12.0-16.0); LYMPHOCYTES # (AUTO) 3.6 10^3/uL (1.5-3.5); MEAN CORPUSCULAR HEMOGLOBIN 28.6 pg (27.0-31.0); MEAN CORPUSCULAR HGB CONC 32.5 g/dL (32.0-36.0); MEAN CORPUSCULAR VOLUME 87.9 fL (81.0-99.0); MEAN PLATELET VOLUME 8.9 fL (7.9-10.8); MONOCYTES # (AUTO) 0.6 10^3/uL (0.0-1.0); MONOCYTES % (AUTO) 6.7 %; NEUTROPHILS # (AUTO) 4.6 10^3/uL (1.5-6.6); PLT - PLATELET COUNT 310 10^3/uL (130-450); RED BLOOD COUNT 4.06 10^6/uL (4.20-5.40); RED CELL DISTRIBUTION WIDTH 12.2 % (12.0-15.0); WHITE BLOOD COUNT 9.5 x10^3/uL (4.8-10.8)
[2020-10-23 08:58] LABS: ALBUMIN 4.7 g/dL (3.2-5.5); ALBUMIN/GLOBULIN RATIO 1.4 (1.0-2.2); ALKALINE PHOSPHATASE 48 IU/L (42-121); ALT ALANINE AMINOTRANSFERASE 22 IU/L (10-60); AST ASPARTATE AMINOTRANSFERASE 20 IU/L (10-42); BILIRUBIN,TOTAL 0.8 mg/dL (0.2-1.0); BUN - BLOOD UREA NITROGEN 19 mg/dL (6-20); CALCIUM 9.4 mg/dL (8.5-10.3); CARBON DIOXIDE - CO2 29 mmol/L (21-32); CHLORIDE 99 mmol/L (101-111); CHOL/HDL RATIO 3.9 (<4.4); CHOLESTEROL 179 mg/dL; CREATININE 0.8 mg/dL (0.4-1.0); GFR - MDRD 72 (>89); GLUCOSE 137 mg/dL (70-100); HDL CHOLESTEROL 46 mg/dL; LDL CHOLESTEROL,CALCULATED 83 mg/dL; LDL/HDL RATIO 1.8 (<4.4); MAGNESIUM 1.5 mg/dL (1.7-2.8); POTASSIUM 4.1 mmol/L (3.5-5.0); SODIUM 138 mmol/L (135-145); TRIGLYCERIDES 252 mg/dL; VLDL CHOLESTEROL 50 mg/dL
[2020-10-23 09:09] LABS: THYROID STIMULATING HORMONE 1.77 uIU/mL (0.34-5.60)
[2020-10-23 12:58] LABS: ESTIMATED AVERAGE GLUCOSE 157 mg/dL (70-100); HEMOGLOBIN A1c% 7.1 % (4.27-6.07)
== END 2020-10-23 08:19 | disposition home or self-care (01) ==
LOC: LAB 08:18
PROVIDERS: ATTEND Family Medicine
DX: E11.9 Type 2 diabetes mellitus without complications (principal); N05.9 Unspecified nephritic syndrome with unspecified morphologic changes; D70.9 Neutropenia, unspecified; T86.10 Unspecified complication of kidney transplant; E83.40 Disorders of magnesium metabolism, unspecified
CPT/HCPCS: 36415; 80053; 80061; 80197; 83036; 83721; 83735; 84443; 85025

== ENCOUNTER 2020-12-11 14:00 | Outpatient (CLI) | payer MEDICARE, OTHER ==
--- NOTE | 2020-12-11 15:26 | DEXA Report ---
PROCEDURE: Dexa Spine and/or Hip INDICATIONS: BONE DISORDER TECHNIQUE: Dual energy x-ray absorptiometry (DXA) was performed on a Bluenog System. Regions measur ed are the AP Spine, femoral neck, and if needed forearm. COMPARISON: 07/10/2017 FINDINGS: Lumbar Spine: Bone Mineral Density 0.897 g/cm/cm,T score -2.4, osteopenia Left Femoral Neck: Bone Mineral Density 0.712 g/cm/cm, T score -2.3, osteopenia (T score greater or equal to -1.0: NORMAL) (T score from -1.1 to -2.4: OSTEOPENIA) (T score less than or equal to -2.5 to: OSTEOPOROSIS) Impression: OSTEOPENIA. Patient is at increased risk for fracture Patients with diagnosis of osteoporosis or osteopenia should have regular bone mineral density assess ment. For those eligible for Medicare, routine testing is allowed once every 2 years. Testing frequ ency can be increased for patients who have rapidly progressing disease or for those who are receivin g medical therapy to restore bone mass. Reviewed by: Cole Arce MD on 12/11/2020 3:25 PM PDT Approved by: Cole Arce MD on 12/11/2020 3:25 PM PDT Station ID: [id number]
== END 2020-12-11 14:01 | disposition home or self-care (01) ==
LOC: DI 14:00
PROVIDERS: ATTEND Family Medicine
DX: M85.88 Other specified disorders of bone density and structure, other site (principal)

== ENCOUNTER 2021-01-18 08:00 | Outpatient (CLI) | payer MEDICARE, OTHER | END 2021-01-18 23:59 | disposition home or self-care (01) | LOC: LAB.N 08:00 | PROVIDERS: ATTEND Family Medicine | DX: R07.0 Pain in throat (principal); Z20.822 Contact with and (suspected) exposure to COVID-19 | CPT/HCPCS: 87070; 87077; U0004 ==

== ENCOUNTER 2021-01-22 08:00 | Outpatient (CLI) | payer MEDICARE, OTHER | END 2021-01-22 23:59 | disposition home or self-care (01) | LOC: LAB.N 08:00 | PROVIDERS: ATTEND Nurse Practitioner | DX: J02.0 Streptococcal pharyngitis (principal); Z20.822 Contact with and (suspected) exposure to COVID-19 ==

== ENCOUNTER 2021-03-29 11:01 | Outpatient (CLI) | payer MEDICARE, OTHER ==
[2021-03-29 17:47] LABS: BASOPHILS # (AUTO) 0.1 10^3/uL (0.0-0.1); BASOPHILS % (AUTO) 0.9 %; EOSINOPHILS # (AUTO) 1.3 10^3/uL (0.0-0.7); HCT - HEMATOCRIT 34.4 % (37.0-47.0); LYMPHOCYTES # (AUTO) 3.5 10^3/uL (1.5-3.5); MEAN CORPUSCULAR HEMOGLOBIN 28.9 pg (27.0-31.0); MEAN CORPUSCULAR VOLUME 90.3 fL (81.0-99.0); MEAN PLATELET VOLUME 10.1 fL (7.9-10.8); MONOCYTES # (AUTO) 0.8 10^3/uL (0.0-1.0); MONOCYTES % (AUTO) 6.5 %; NEUTROPHILS % (AUTO) 51.3 %; PLT - PLATELET COUNT 335 10^3/uL (130-450); RED BLOOD COUNT 3.81 10^6/uL (4.20-5.40); RED CELL DISTRIBUTION WIDTH 12.9 % (12.0-15.0); WHITE BLOOD COUNT 11.8 x10^3/uL (4.8-10.8)
[2021-03-29 18:11] LABS: CALCIUM 9.7 mg/dL (8.5-10.3); CREATININE 0.7 mg/dL (0.4-1.0); MAGNESIUM 1.3 mg/dL (1.7-2.8); POTASSIUM 3.7 mmol/L (3.5-5.0)
[2021-03-29 18:20] LABS: SLIDE REVIEW? Indicated
[2021-03-29 18:47] LABS: DIFFERENTIAL COMMENT MANUAL=AUTO DIFF; PLATELET ESTIMATE, MANUAL NORMAL (130-450,000) (NORMAL); PLATELET MORPHOLOGY NORMAL APPEARANCE (NORMAL); RBC MORPHOLOGY (MULTIPLE) NORMAL APPEARANCE (NORMAL)
== END 2021-03-29 23:59 | disposition home or self-care (01) ==
LOC: LAB.WCP 11:01
PROVIDERS: ATTEND Internal Medicine Nephrology
DX: N05.9 Unspecified nephritic syndrome with unspecified morphologic changes (principal); D70.9 Neutropenia, unspecified; D63.1 Anemia in chronic kidney disease; E83.40 Disorders of magnesium metabolism, unspecified; T86.10 Unspecified complication of kidney transplant
CPT/HCPCS: 36415; 80048; 80197; 83735; 85025

== ENCOUNTER 2021-04-02 08:08 | Outpatient (CLI) | payer MEDICARE, OTHER ==
[2021-04-02 12:13] LABS: BASOPHILS % (AUTO) 1.1 %; EOSINOPHILS % (AUTO) 10.7 %; HCT - HEMATOCRIT 34.7 % (37.0-47.0); LYMPHOCYTES % (AUTO) 36.7 %; MEAN CORPUSCULAR HEMOGLOBIN 28.9 pg (27.0-31.0); MEAN CORPUSCULAR HGB CONC 31.7 g/dL (32.0-36.0); MEAN CORPUSCULAR VOLUME 91.1 fL (81.0-99.0); MEAN PLATELET VOLUME 10.3 fL (7.9-10.8); MONOCYTES % (AUTO) 6.1 %; NEUTROPHILS % (AUTO) 45.1 %; PLT - PLATELET COUNT 315 10^3/uL (130-450); RED BLOOD COUNT 3.81 10^6/uL (4.20-5.40); RED CELL DISTRIBUTION WIDTH 12.9 % (12.0-15.0); WHITE BLOOD COUNT 10.5 x10^3/uL (4.8-10.8)
[2021-04-02 12:29] LABS: ALBUMIN 4.4 g/dL (3.2-5.5); ALBUMIN/GLOBULIN RATIO 1.6 (1.0-2.2); ALKALINE PHOSPHATASE 45 IU/L (42-121); ALT ALANINE AMINOTRANSFERASE 18 IU/L (10-60); AST ASPARTATE AMINOTRANSFERASE 20 IU/L (10-42); BILIRUBIN,TOTAL 0.6 mg/dL (0.2-1.0); BUN - BLOOD UREA NITROGEN 13 mg/dL (6-20); CALCIUM 9.5 mg/dL (8.5-10.3); CARBON DIOXIDE - CO2 25 mmol/L (21-32); CHLORIDE 103 mmol/L (101-111); CHOLESTEROL 136 mg/dL; CREATININE 0.8 mg/dL (0.4-1.0); GFR - MDRD 72 (>89); GLUCOSE 124 mg/dL (70-100); HDL CHOLESTEROL 46 mg/dL; LDL CHOLESTEROL,CALCULATED 57 mg/dL; LDL/HDL RATIO 1.2 (<4.4); MAGNESIUM 1.4 mg/dL (1.7-2.8); POTASSIUM 4.3 mmol/L (3.5-5.0); SODIUM 136 mmol/L (135-145); TOTAL PROTEIN 7.2 g/dL (6.7-8.2); TRIGLYCERIDES 163 mg/dL; VLDL CHOLESTEROL 33 mg/dL
[2021-04-02 12:48] LABS: ABNORMAL LYMPHS % (MANUAL) 0 %
[2021-04-02 13:23] LABS: BAND NEUTROPHILS % (MANUAL) 1 %; BASOPHILS # (MANUAL) 0.3 10^3/uL (0-0.1); BASOPHILS % (MANUAL) 3 %; EOSINOPHILS # (MANUAL) 1.4 10^3/uL (0-0.7); LYMPHOCYTES # (MANUAL) 4.8 10^3/uL (1.5-3.5); LYMPHOCYTES % (MANUAL) 46 %; MONOCYTES # (MANUAL) 0.1 10^3/uL (0.0-1.0); NEUTROPHILS # (MANUAL) 3.9 10^3/uL (1.5-6.6)
[2021-04-02 13:24] LABS: DIFFERENTIAL COMMENT MANUAL DIFFERENTIAL; PLATELET ESTIMATE, MANUAL NORMAL (130-450,000) (NORMAL); PLATELET MORPHOLOGY NORMAL APPEARANCE (NORMAL); RBC MORPHOLOGY (MULTIPLE) NORMAL APPEARANCE (NORMAL); WBC MORPHOLOGY (MULTIPLE) NORMAL APPEARANCE (NORMAL)
[2021-04-02 13:35] LABS: ESTIMATED AVERAGE GLUCOSE 137 mg/dL (70-100); HEMOGLOBIN A1c% 6.4 % (4.27-6.07)
== END 2021-04-02 23:59 | disposition home or self-care (01) ==
LOC: LAB.WCP 08:08
PROVIDERS: ATTEND Family Medicine
DX: E11.9 Type 2 diabetes mellitus without complications (principal)
CPT/HCPCS: 36415; 80053; 80061; 82043; 82570; 83036; 83721; 83735; 85025

== ENCOUNTER 2021-04-18 08:00 | Outpatient (CLI) | payer MEDICARE, OTHER ==
[2021-04-18 19:26] LABS: CREATININE,URINE 107.7 mg/dL; MICROALBUMIN,URINE 2.8 mg/dL (0-300.0)
== END 2021-04-18 23:59 ==
LOC: LAB 08:00
PROVIDERS: ATTEND Family Medicine
DX: E11.9 Type 2 diabetes mellitus without complications (principal)
CPT/HCPCS: 82043; 82570

== ENCOUNTER 2021-06-02 22:38 | Emergency (ER) | payer MEDICARE, OTHER ==
--- NOTE | 2021-06-03 01:02 | ED Physician Documentation ---
PD HPI HEADACHE - Stated complaint Stated Complaint: H/A,CHILLS - Chief complaint Chief Complaint: Heent - History obtained from History obtained from: Patient - History of Present Illness Timing - onset: How many days ago (4) Timing - details: Gradual onset, Constant, Waxing and waning Pain level now: 6 Worst headache ever?: No: Worst headache ever? Location: Front Quality: Aching Associated symptoms: No: Stiff neck, Nausea, Vomiting, Weakness, Vision changes Improved by: Nothing Worsened by: Other (no exacerbating factors) Recently seen: Not recently seen - Additional information Additional information: c/o bifrontal headache x 4 days. she has had chills but not taken her temperature at home. She is COVID vaccinated. Denies h/o similar headaches. Review of Systems Constitutional: reports: Chills Cardiac: reports: Reviewed and negative Respiratory: reports: Reviewed and negative GI: reports: Reviewed and negative Neurologic: reports: Headache. 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 : Renal insuffiency HEENT: None Psych: Anxiety Musculoskeletal: Osteoarthritis, Osteoporosis Derm: None - Past Surgical History Past Surgical History: Yes - Present Medications Home Medications: Ambulatory Orders Medication Instructions Recorded Confirmed Ibandronate Sodium [Boniva] 150 mg PO .MONTHLY 12/31/19 03/24/20 Magnesium Oxide [Magnesium] 400 mg PO DAILY 12/31/19 03/24/20 Pravastatin [Pravachol] 40 mg PO QPM 12/31/19 03/24/20 Tacrolimus 2 mg PO BID 12/31/19 03/24/20 Losartan [Cozaar] 25 mg PO DAILY 03/23/20 03/24/20 metFORMIN [Glucophage] 500 mg PO BID 03/23/20 03/24/20 mycophenolate mofetiL [Cellcept] 250 mg PO BID 03/23/20 03/24/20 Acetaminophen [Tylenol] 325 mg PO DAILY PRN 03/24/20 03/24/20 Apixaban [Eliquis] 5 mg PO BID #60 tablet 03/24/20 Docusate Sodium 100Mg Capsule 100 mg PO PRN PRN 03/24/20 03/24/20 [Colace 100Mg Capsule] Metoprolol Succinate [Toprol Xl] 25 mg PO BID #60 tablet 03/24/20 HYDROcod/ACETAM 5/325 [[place] 5/325] 1 - 2 tablet PO Q6H PRN #14 tablet 06/03/21 - Allergies Allergies/Adverse Reactions: Allergies Allergy/AdvReac Type Severity Reaction Status Date / Time Sulfa (Sulfonamide Allergy Intermediate Rash Verified 06/03/21 01:11 Antibiotics) - Social History Does the pt smoke?: No Smoking Status: Never smoker Does the pt drink ETOH?: No Does the pt have substance abuse?: No - Immunizations Immunizations are current?: Yes - POLST Patient has POLST: No PD ED PE NORMAL - Vitals Vital signs reviewed: Yes - General General: Alert and oriented X 3, No acute distress, Well developed/nourished - HEENT HEENT: PERRL, EOMI - Neck Neck: Supple, no meningeal sign - Cardiac Cardiac: RRR, No murmur - Respiratory Respiratory: No respiratory distress, Clear bilaterally - Abdomen Abdomen: Soft, Non tender - Back Back: No CVA TTP - Derm Derm: Normal color, Warm and dry - Neuro Neuro: Alert and oriented X 3, 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 parapertussis DNA (PCR) NOT DETECTED Nasal Coronavir 229E PCR NOT DETECTED Nasal Coronavir HKU1 PCR NOT DETECTED Nasal Coronavir NL63 PCR NOT DETECTED Nasal Coronavir OC43 PCR NOT DETECTED Nasal Enterovir/Rhinovir PCR NOT DETECTED Nasal Influenza B PCR NOT DETECTED Nasal Influenza A PCR NOT DETECTED Nasal Parainfluen 1 PCR NOT DETECTED Nasal Parainfluen 2 PCR NOT DETECTED Nasal Parainfluen 3 PCR NOT DETECTED Nasal Parainfluen 4 PCR NOT DETECTED Nasal RSV (PCR) NOT DETECTED Nasal B.pertussis DNA PCR NOT DETECTED Nasal C.pneumoniae (PCR) NOT DETECTED Uriel Human Metapneumo PCR NOT DETECTED Nasal M.pneumoniae (PCR) NOT DETECTED Nasal SARS-CoV-2 (PCR) DETECTED A - Rads (name of study) CT head Radiology: Prelim report reviewed, See rad report PD MEDICAL DECISION MAKING - ED course Complexity details: reviewed results, re-evaluated patient, considered differential, d/w patient ED course: chief complaint is bifrontal headache, no h/o similar headaches. She has unremarkable CTH. Her COVID test tonight is positive. She is in no respiratory distress, with 100% pulse ox on room air and clear lungs to auscultation. She is given vicodin for her headache (has been taking tylenol without relief at home). Results reviewed with patient, return precautions discussed I am prescribing a short course of short-acting opioid pain medication for this patient. 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 I have discussed that the opioids are for short term therapy only, and will not be refilled from the ED Departure - Departure Disposition: 01 Home, Self Care Clinical Impression: COVID-19 Condition: Good Instructions: ED Cephalgia Unspecified, ED Viral Syndrome Prescriptions: HYDROcod/ACETAM 5/325 [[place] 5/325] 1 - 2 tablet PO Q6H PRN #14 tablet PRN Reason: Pain Comments: YOU HAVE TESTED POSITIVE FOR COVID-19. Please follow the latest CDC guidelines regarding quaratine/isolation. A prescription for hydrocodone/acetaminophen (pain medication) has been electronically submitted to [facility] pharmacy in [place] I am prescribing a short course of narcotic pain medication for you. These are potentially dangerous and addictive medications that should be used carefully. These medications may constipate you. Take an [id number]-[id number] stool softener (docusate) twice daily with plenty of water while taking these medications. If you go 24 hours without a bowel movement, take nkuq-rtp-zeyshcy miralax, per package instructions. Do not drink or drive while taking these medications. If you received narcotic or sedating medications while in the emergency department, do not drive for 24 hours. Store this medication in a safe, secure place and out of reach of children. It is a violation of federal law to give or sell this medication to another person or to use in a manner other than prescribed. The ED will not refill narcotic prescriptions, including prescriptions lost or stolen. To dispose of unwanted medications: 1. [facility] [address] in [place] has a medication drop box. They accept prescription medications (in pill form) Friday through Friday 9:00 a.m. to 5:00 p.m. 2. [facility] [employer] accepts prescription medications (in pill form only) for disposal year round. Call for more information. 3. Contact the [facility] for the next [facility] sponsored prescription drug collection event. , [phone], or [phone]; Discharge Date/Time: 06/03/21 04:00
--- NOTE | 2021-06-03 02:08 | CT Report ---
PROCEDURE: HEAD WO INDICATIONS: headache TECHNIQUE: Noncontrast 4.5 mm thick angled axial sections acquired from the foramen magnum to the vertex. For r adiation dose reduction, the following was used: automated exposure control, adjustment of mA and/or kV according to patient size. COMPARISON: None. FINDINGS: Image quality: Diagnostic. CSF spaces: Basal cisterns are patent. No extra-axial fluid collections. Ventricles are normal in size and shape. Brain: No midline shift. No intracranial masses or hemorrhage. Phipps-white matter interface is norm al. Mild atherosclerotic calcifications involving the intracranial segments of the bilateral internal carotid arteries. Skull and face: Calvarium and visualized facial bones are intact, without suspicious lesions. Sinuses: Visualized sinuses and mastoids are clear. IMPRESSION: CT head without acute intracranial abnormalities. No mass or mass effect. Reviewed by: Cole Saldana MD on 06/03/2021 2:07 AM [facility] Approved by: Cole Saldana MD on 06/03/2021 2:07 AM [facility] Station ID: [id number]
[2021-06-03 02:56] LABS: CORONAVIRUS 229E-RESP PCR NOT DETECTED; CORONAVIRUS HKU1-RESP PCR NOT DETECTED; CORONAVIRUS NL63-RESP PCR NOT DETECTED; CORONAVIRUS OC43-RESP PCR NOT DETECTED
[2021-06-03 02:58] LABS: B. PARAPERTUSSIS- RESP PCR PAN NOT DETECTED; B. PERTUSSIS- RESP PCR PANEL NOT DETECTED; C. PNEUMONIAE- RESP PCR PANEL NOT DETECTED; HUMAN METAPNEUMOVIRUS NOT DETECTED; INFLUENZA A- RESP PCR PANEL NOT DETECTED; INFLUENZA B - RESP PCR PANEL NOT DETECTED; M. PNEUMONIAE- RESP PCR PANEL NOT DETECTED; PARAINFLUENZA VIRUS 1 NOT DETECTED; PARAINFLUENZA VIRUS 2 NOT DETECTED; PARAINFLUENZA VIRUS 3 NOT DETECTED; PARAINFLUENZA VIRUS 4 NOT DETECTED; RHINOVIRUS/ENTEROVIRUS NOT DETECTED; RSV- RESP PCR PANEL NOT DETECTED; SARS-CoV-2 -RESP PCR PANEL DETECTED
[2021-06-03] MEDS ORDERED: HYDROcod/ACET 5/325 Prepack 4 PO STA (03:29)
[2021-06-03 04:09] VITALS: BP 161/87
== END 2021-06-03 04:00 | disposition home or self-care (01) ==
LOC: ED 22:38
DX: U07.1 COVID-19 (principal); R51.9 Headache, unspecified; R68.83 Chills (without fever); I10 Essential (primary) hypertension; E11.9 Type 2 diabetes mellitus without complications; Z79.84 Long term (current) use of oral hypoglycemic drugs; Z79.01 Long term (current) use of anticoagulants
CPT/HCPCS: 0202U; 80048; 85025; 99282; 99284

== ENCOUNTER 2021-06-05 20:25 | Emergency (ER) | payer MEDICARE, OTHER ==
--- NOTE | 2021-06-05 20:42 | ED Physician Documentation ---
History of Present Illness - Stated complaint Stated Complaint: HEART PALPITATIONS - History obtained from History obtained from: Patient - History of Present Illness Timing: Enter time (20:00), Today Pain level now: 0 Improved by: no ameliorating factors (resolved spontaneously) Worsened by: no exacerbating/inciting factors - Additonal information Additional information: c/o episodic rapid palpitations tonight. Initial episode was 8 PM tonight while at home at rest, resolved spontaneously but reoccurred en route to ED and then became associated with left anterior chest pain. These symptoms resolved and she is asymptomatic by the time of this evaluation. She cannot provide timeframes for these symptoms regarding how long they lasted. She was T+R from this ED 3 days ago for CERRATO and was found to be COVID positive. Review of Systems Constitutional: reports: Reviewed and negative Cardiac: reports: Chest pain / pressure, Palpitations. 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 : Renal insuffiency HEENT: None Psych: Anxiety Musculoskeletal: Osteoarthritis, Osteoporosis Derm: None - Past Surgical History Past Surgical History: Yes - Present Medications Home Medications: Ambulatory Orders Medication Instructions Recorded Confirmed Ibandronate Sodium [Boniva] 150 mg PO .MONTHLY 12/31/19 03/24/20 Magnesium Oxide [Magnesium] 400 mg PO DAILY 12/31/19 03/24/20 Pravastatin [Pravachol] 40 mg PO QPM 12/31/19 03/24/20 Tacrolimus 2 mg PO BID 12/31/19 03/24/20 Losartan [Cozaar] 25 mg PO DAILY 03/23/20 03/24/20 metFORMIN [Glucophage] 500 mg PO BID 03/23/20 03/24/20 mycophenolate mofetiL [Cellcept] 250 mg PO BID 03/23/20 03/24/20 Acetaminophen [Tylenol] 325 mg PO DAILY PRN 03/24/20 03/24/20 Apixaban [Eliquis] 5 mg PO BID #60 tablet 03/24/20 Docusate Sodium 100Mg Capsule 100 mg PO PRN PRN 03/24/20 03/24/20 [Colace 100Mg Capsule] Metoprolol Succinate [Toprol Xl] 25 mg PO BID #60 tablet 03/24/20 HYDROcod/ACETAM 5/325 [[place] 5/325] 1 - 2 tablet PO Q6H PRN #14 tablet 06/03/21 - Allergies Allergies/Adverse Reactions: Allergies Allergy/AdvReac Type Severity Reaction Status Date / Time Sulfa (Sulfonamide Allergy Intermediate Rash Verified 06/03/21 01:11 Antibiotics) - Social History Does the pt smoke?: No Smoking Status: Never smoker Does the pt drink ETOH?: No Does the pt have substance abuse?: No - Immunizations Immunizations are current?: Yes - POLST Patient has POLST: No PD ED PE NORMAL - Vitals Vital signs reviewed: Yes - General General: Alert and oriented X 3, No acute distress, Well developed/nourished - Neck Neck: Supple, no meningeal sign - Cardiac Cardiac: RRR, No murmur, No gallop, No rub - Respiratory Respiratory: No respiratory distress, Clear bilaterally - Abdomen Abdomen: Soft, Non tender Results - Vitals Vitals: Vital Signs - 24 hr 06/05/21 06/05/21 06/05/21 20:50 21:12 21:23 Temperature 36.9 C Heart Rate 68 68 Respiratory 19 16 17 Rate Blood Pressure 177/82 H 184/79 H O2 Saturation 100 99 06/05/21 06/05/21 06/06/21 22:45 23:45 00:00 Temperature Heart Rate 66 64 71 Respiratory 15 17 16 Rate Blood Pressure 174/73 H 143/64 H 157/78 H O2 Saturation 98 100 100 Oxygen O2 Source Room air - EKG (time done) No standard instances Rate: Rate (enter#) (70) Rhythm: NSR [place]: Normal Intervals: Normal CT QRS: Normal Ischemia: Normal ST segments, T wave inversion (V4-6, I, aVL) Compare to prior EKG: Unchanged from prior EKG (T inversions in V4-V6, I, aVL noted on previous EKG) Computer interpretation: Disagree with computer (no convincing ST elevations) - Labs Labs: Laboratory Tests 06/05/21 06/05/21 06/05/21 21:07 21:07 21:07 WBC 5.8 RBC 4.09 L Hgb 11.9 L Hct 34.9 L MCV 85.3 MCH 29.1 MCHC 34.1 RDW 12.3 Plt Count 299 MPV 8.9 Neut # (Auto) 2.2 Lymph # (Auto) 2.7 Oliver # (Auto) 0.6 Eos # (Auto) 0.3 Baso # (Auto) 0.0 Absolute Nucleated RBC 0.00 Nucleated RBC % 0.0 Sodium 125 L Potassium 3.7 Chloride 94 L Carbon Dioxide 19 L Anion Gap 12.0 BUN 15 Creatinine 0.9 Estimated GFR (MDRD) 62 L Glucose 186 H Calcium 8.8 Troponin I High Sens 10.3 - Rads (name of study) chest xray Radiology: Prelim report reviewed, See rad report PD MEDICAL DECISION MAKING - ED course Complexity details: reviewed results, re-evaluated patient, considered differential, d/w patient ED course: presents with episodic palpitations with vague chest pressure. symptoms have resolved by the time of this evaluation. No concerning findings on CXR, EKG (similar to previous EKG), and troponin is normal. Incidental finding of hyponatremia with sodium level 125, with no significant hyponatremia on previous labs. For the hyponatremia she is given 1 liter NS. Results reviewed with patient and encouraged to follow up with primary care provider for the palpitations/chest pain, as well as likely recheck of her sodium level Departure - Departure Disposition: 01 Home, Self Care Clinical Impression: Palpitations, Hyponatremia Chest pain Qualifiers: Chest pain type: unspecified Qualified Code(s): R07.9 - Chest pain, unspecified Condition: Good Instructions: ED Chest Pain Atypical Unkn Cause, ED Hyponatremia, ED Palpitations Follow-Up: Elvis Rincon DO [Primary Care Provider] - Comments: As we discussed, your test results today are reassuring and do not indicate what the cause of your palpitations and chest pain were. Of note, your sodium is quite low (the level was 125; it should not be below 135). The low sodium is a coincident finding (it would not cause palpitations or chest pain), but is low enough to be concerning. You were given a liter of normal saline (intravenous fluids) in the emergency department; this has sodium in it and should raise the level, but you might need to have the level rechecked within the next few days or weeks; this is at the discretion of your primary care provider. You should contact your doctor's office to let them know about the low sodium and they can decide if/when to recheck this level Discharge Date/Time: 06/06/21 00:32
[2021-06-05 21:16] LABS: BASOPHILS % (AUTO) 0.5 %; EOSINOPHILS # (AUTO) 0.3 10^3/uL (0.0-0.7); EOSINOPHILS % (AUTO) 4.7 %; HCT - HEMATOCRIT 34.9 % (37.0-47.0); HGB - HEMOGLOBIN 11.9 g/dL (12.0-16.0); LYMPHOCYTES # (AUTO) 2.7 10^3/uL (1.5-3.5); LYMPHOCYTES % (AUTO) 45.8 %; MEAN CORPUSCULAR HEMOGLOBIN 29.1 pg (27.0-31.0); MEAN CORPUSCULAR HGB CONC 34.1 g/dL (32.0-36.0); MEAN CORPUSCULAR VOLUME 85.3 fL (81.0-99.0); MEAN PLATELET VOLUME 8.9 fL (7.9-10.8); MONOCYTES # (AUTO) 0.6 10^3/uL (0.0-1.0); MONOCYTES % (AUTO) 10.2 %; NEUTROPHILS # (AUTO) 2.2 10^3/uL (1.5-6.6); NEUTROPHILS % (AUTO) 38.6 %; PLT - PLATELET COUNT 299 10^3/uL (130-450); RED BLOOD COUNT 4.09 10^6/uL (4.20-5.40); RED CELL DISTRIBUTION WIDTH 12.3 % (12.0-15.0); WHITE BLOOD COUNT 5.8 x10^3/uL (4.8-10.8)
--- NOTE | 2021-06-05 21:24 | XRAY Report ---
PROCEDURE: Chest 1 View X-Ray INDICATIONS: chest pain TECHNIQUE: One view of the chest was acquired. COMPARISON: 03/23/2020 FINDINGS: Surgical changes and devices: Surgical clips are seen in right axilla unchanged from prior study.. Lungs and pleura: No pleural effusions or pneumothorax. Lungs are clear. Mediastinum: Mediastinal contours appear normal. Heart size is normal. Bones and chest wall: No suspicious bony lesions. Overlying soft tissues appear unremarkable. IMPRESSION: No acute cardiopulmonary pathology. Reviewed by: Trung Sandoval MD on 06/05/2021 9:22 PM PST Approved by: Trung Sandoval MD on 06/05/2021 9:22 PM PST Station ID: [id number]
[2021-06-05 21:27] LABS: CALCIUM 8.8 mg/dL (8.5-10.3); CREATININE 0.9 mg/dL (0.4-1.0); POTASSIUM 3.7 mmol/L (3.5-5.0)
[2021-06-05] MEDS ORDERED: SODIUM CHLORIDE 0.9% 1,000 ML IV STA (21:50)
[2021-06-06 00:32] VITALS: BP 157/78
== END 2021-06-06 00:32 | disposition home or self-care (01) ==
LOC: ED 20:25
DX: R07.9 Chest pain, unspecified (principal); I10 Essential (primary) hypertension; E11.9 Type 2 diabetes mellitus without complications; Z79.84 Long term (current) use of oral hypoglycemic drugs; R00.2 Palpitations; E87.1 Hypo-osmolality and hyponatremia
CPT/HCPCS: 36415; 80048; 84484; 85025; 93005; 96360; 96361; 99284

== ENCOUNTER 2021-06-09 09:32 | Outpatient (CLI) | payer MEDICARE, OTHER ==
[2021-06-09 13:52] LABS: ALBUMIN 4.3 g/dL (3.2-5.5); ALBUMIN/GLOBULIN RATIO 1.3 (1.0-2.2); BILIRUBIN,TOTAL 0.6 mg/dL (0.2-1.0); POTASSIUM 4.3 mmol/L (3.5-5.0); TOTAL PROTEIN 7.7 g/dL (6.7-8.2)
== END 2021-06-09 09:33 | disposition home or self-care (01) ==
LOC: LAB.N 09:32
PROVIDERS: ATTEND Physician Assistant
DX: E87.1 Hypo-osmolality and hyponatremia (principal)
CPT/HCPCS: 36415; 80053

== ENCOUNTER 2021-06-29 13:35 | Outpatient (CLI) | payer MEDICARE, OTHER ==
[2021-06-29 19:29] LABS: BILIRUBIN,URINE NEGATIVE (NEGATIVE); GLUCOSE, URINE (UA) NEGATIVE (NEGATIVE); KETONES,URINE (UA) NEGATIVE (NEGATIVE); LEUKOCYTE ESTERASE, URINE NEGATIVE (NEGATIVE); NITRITE,URINE POSITIVE (NEGATIVE); OCCULT BLOOD,URINE SMALL (NEGATIVE); PH,URINE 5.5 PH (5.0-7.5); PROTEIN,URINE NEGATIVE (NEGATIVE); UROBILINOGEN,URINE 0.2 (NORMAL) E.U./dL (NORMAL)
[2021-06-29 19:36] LABS: CLARITY,URINE HAZY (CLEAR)
[2021-06-29 20:23] LABS: BACTERIA,URINE Moderate /HPF (None Seen); EPITHELIAL CELLS,UR RARE Renal Tubular /HPF (<= Few); RBC,URINE 0-5 /HPF (0-5); SQUAMOUS EPITHELIAL CELL,UR RARE Squamous (<= Few)
== END 2021-06-29 23:59 | disposition home or self-care (01) ==
LOC: LAB.N 13:35
PROVIDERS: ATTEND Registered Nurse
DX: R30.0 Dysuria (principal)
CPT/HCPCS: 81001; 87077; 87086; 87181

== ENCOUNTER 2021-07-13 08:00 | Outpatient (CLI) | payer MEDICARE, OTHER ==
[2021-07-13 18:41] LABS: H. PYLORIS ANTIGEN STL NEGATIVE (Negative)
[2021-07-13 20:50] LABS: FECAL OCCULT BLOOD (FIT) POSITIVE (NEGATIVE)
== END 2021-07-13 23:59 | disposition home or self-care (01) ==
LOC: LAB.R 08:00
PROVIDERS: ATTEND Family Medicine
DX: R19.7 Diarrhea, unspecified (principal)
CPT/HCPCS: 81599; 82274; 83993; 87045; 87177; 87209; 87329; 87338; 87427; 87449; 87493

== ENCOUNTER 2021-08-27 07:58 | Outpatient (CLI) | payer MEDICARE, OTHER ==
[2021-08-27 12:17] LABS: BASOPHILS % (AUTO) 0.5 %; EOSINOPHILS # (AUTO) 0.3 10^3/uL (0.0-0.7); EOSINOPHILS % (AUTO) 3.6 %; HCT - HEMATOCRIT 35.7 % (37.0-47.0); HGB - HEMOGLOBIN 11.4 g/dL (12.0-16.0); LYMPHOCYTES # (AUTO) 2.7 10^3/uL (1.5-3.5); LYMPHOCYTES % (AUTO) 34.3 %; MEAN CORPUSCULAR HEMOGLOBIN 29.2 pg (27.0-31.0); MEAN CORPUSCULAR HGB CONC 31.9 g/dL (32.0-36.0); MEAN CORPUSCULAR VOLUME 91.5 fL (81.0-99.0); MEAN PLATELET VOLUME 9.6 fL (7.9-10.8); MONOCYTES # (AUTO) 0.9 10^3/uL (0.0-1.0); MONOCYTES % (AUTO) 11.4 %; NEUTROPHILS % (AUTO) 49.9 %; PLT - PLATELET COUNT 285 10^3/uL (130-450); RED CELL DISTRIBUTION WIDTH 13.3 % (12.0-15.0)
[2021-08-27 12:30] LABS: CALCIUM 9.4 mg/dL (8.5-10.3); CREATININE 0.8 mg/dL (0.4-1.0); MAGNESIUM 1.4 mg/dL (1.7-2.8); POTASSIUM 3.9 mmol/L (3.5-5.0)
[2021-08-27 13:00] LABS: CREATININE,URINE 172.4 mg/dL; PROTEIN/CREATININE RATIO,URINE 0.2 (<=0.2)
== END 2021-08-27 07:59 | disposition home or self-care (01) ==
LOC: LAB.N 07:58
PROVIDERS: ATTEND Internal Medicine Nephrology
DX: N05.9 Unspecified nephritic syndrome with unspecified morphologic changes (principal); D70.9 Neutropenia, unspecified; D63.1 Anemia in chronic kidney disease; N25.0 Renal osteodystrophy; R80.9 Proteinuria, unspecified; E83.40 Disorders of magnesium metabolism, unspecified; T86.10 Unspecified complication of kidney transplant
CPT/HCPCS: 36415; 80048; 80197; 82570; 83735; 84156; 85025

== ENCOUNTER 2021-09-26 13:29 | Outpatient (CLI) | payer MEDICARE, OTHER ==
[2021-09-26 20:24] LABS: ESTIMATED AVERAGE GLUCOSE 163 mg/dL (70-100); HEMOGLOBIN A1c% 7.3 % (4.27-6.07)
[2021-09-26 20:57] LABS: CREATININE,URINE 49.3 mg/dL; PROTEIN/CREATININE RATIO,URINE 0.2 (<=0.2)
== END 2021-09-26 13:30 | disposition home or self-care (01) ==
LOC: LAB.N 13:29
PROVIDERS: ATTEND Internal Medicine Nephrology
DX: E11.9 Type 2 diabetes mellitus without complications (principal); R80.9 Proteinuria, unspecified
CPT/HCPCS: 36415; 82570; 83036; 84156

== ENCOUNTER 2021-11-16 17:06 | Outpatient (CLI) | payer MEDICARE, OTHER | END 2021-11-16 17:07 | disposition short-term general hospital (02) | LOC: EMS 17:06 | DX: R00.2 Palpitations (principal); R07.9 Chest pain, unspecified | CPT/HCPCS: A0425; A0427 ==

== ENCOUNTER 2021-12-17 08:00 | Outpatient (CLI) | payer MEDICARE, OTHER ==
[2021-12-17 12:10] LABS: CALCIUM 9.7 mg/dL (8.5-10.3); CREATININE 0.7 mg/dL (0.4-1.0); POTASSIUM 4.4 mmol/L (3.5-5.0)
[2021-12-17 13:39] LABS: ESTIMATED AVERAGE GLUCOSE 171 mg/dL (70-100); HEMOGLOBIN A1c% 7.6 % (4.27-6.07)
== END 2021-12-17 08:01 | disposition home or self-care (01) ==
LOC: LAB.N 08:00
PROVIDERS: ATTEND Internal Medicine Nephrology
DX: N05.9 Unspecified nephritic syndrome with unspecified morphologic changes (principal); E11.9 Type 2 diabetes mellitus without complications
CPT/HCPCS: 36415; 80048; 83036

== ENCOUNTER 2022-01-09 09:56 | Outpatient (CLI) | payer MEDICARE, OTHER ==
--- NOTE | 2022-01-23 10:30 | Mammography Report ---
BILATERAL DIGITAL SCREENING MAMMOGRAM 3D/2D: 01/09/2022 CLINICAL: Routine screening. Comparison is made to exams dated: 03/05/2017 mammogram, 03/30/2015 mammogram - [facility], 02/15/2014 mammogram, 10/08/2012 mammogram, and 02/03/2012 mammogram - [facility]. Both breasts are heterogeneously dense, which may obscure small masses (category c / 51-75% glandula r tissue). There are benign post operative findings in the right breast. No significant masses, calcifications, or other findings are seen in either breast. There has been no significant interval change. IMPRESSION: BENIGN There is no mammographic evidence of malignancy. A 1 year screening mammogram is recommended. Based on the Tyrer Cuzick model (a risk assessment model) the patients lifetime risk is 5.7% and her 10 year risk is 3.1%. According to the ACR, ACS, and NCCN guidelines, an annual breast MRI exam candido g with mammogram is recommended if the patients lifetime risk is 20% or greater. This exam was interpreted at Station ID: [id number]. NOTE: For mammograms, a report in lay terms will be sent to the patient. Approximately 15% of breast malignancies will not be visualized mammographically. In the management of a palpable breast mass, a negative mammogram must not discourage biopsy of a clinically suspicious lesion. Electronically Signed By: Cole Arce M.D. [email or web address]:01/22/2022 14:19:47 ACR BI-RADS Category 2: Benign Finding(s) 3342F PARENCHYMAL PATTERN: (D) - The breast(s) demonstrate(s) heterogeneously dense fibroglandular jade ellis. BI-RADS CATEGORY: (2) - 2 RECOMMENDATION: (ANNUAL) - Recommend routine annual screening mammography. [id number] 1 year screening LATERALITY: (B)
== END 2022-01-09 09:57 | disposition home or self-care (01) ==
LOC: DI.N 09:56
DX: Z12.31 Encounter for screening mammogram for malignant neoplasm of breast (principal)

== ENCOUNTER 2022-06-22 08:42 | Outpatient (CLI) | payer MEDICARE, OTHER ==
[2022-06-22 09:14] LABS: BASOPHILS # (AUTO) 0.1 10^3/uL (0.0-0.1); BASOPHILS % (AUTO) 0.6 %; EOSINOPHILS # (AUTO) 0.9 10^3/uL (0.0-0.7); EOSINOPHILS % (AUTO) 8.1 %; HCT - HEMATOCRIT 34.4 % (37.0-47.0); LYMPHOCYTES # (AUTO) 2.5 10^3/uL (1.5-3.5); LYMPHOCYTES % (AUTO) 21.7 %; MEAN CORPUSCULAR HEMOGLOBIN 28.4 pg (27.0-31.0); MEAN CORPUSCULAR VOLUME 88.9 fL (81.0-99.0); MONOCYTES # (AUTO) 0.9 10^3/uL (0.0-1.0); MONOCYTES % (AUTO) 8.1 %; NEUTROPHILS # (AUTO) 6.9 10^3/uL (1.5-6.6); NEUTROPHILS % (AUTO) 59.9 %; PLT - PLATELET COUNT 299 10^3/uL (130-450); RED BLOOD COUNT 3.87 10^6/uL (4.20-5.40); RED CELL DISTRIBUTION WIDTH 12.5 % (12.0-15.0); WHITE BLOOD COUNT 11.6 x10^3/uL (4.8-10.8)
[2022-06-22 09:29] LABS: ALBUMIN 4.4 g/dL (3.2-5.5); ALBUMIN/GLOBULIN RATIO 1.3 (1.0-2.2); ALKALINE PHOSPHATASE 50 IU/L (42-121); ALT ALANINE AMINOTRANSFERASE 17 IU/L (10-60); AST ASPARTATE AMINOTRANSFERASE 19 IU/L (10-42); BILIRUBIN,TOTAL 0.7 mg/dL (0.2-1.0); BUN - BLOOD UREA NITROGEN 16 mg/dL (6-20); CALCIUM 9.6 mg/dL (8.5-10.3); CARBON DIOXIDE - CO2 25 mmol/L (21-32); CHLORIDE 98 mmol/L (101-111); CHOL/HDL RATIO 2.7 (<4.4); CHOLESTEROL 145 mg/dL; CREATININE 0.9 mg/dL (0.4-1.0); GFR - MDRD 62 (>89); GLUCOSE 159 mg/dL (70-100); HDL CHOLESTEROL 54 mg/dL; LDL CHOLESTEROL,CALCULATED 68 mg/dL; LDL/HDL RATIO 1.3 (<4.4); MAGNESIUM 1.3 mg/dL (1.7-2.8); POTASSIUM 4.4 mmol/L (3.5-5.0); SODIUM 134 mmol/L (135-145); TOTAL PROTEIN 7.8 g/dL (6.7-8.2); TRIGLYCERIDES 115 mg/dL; VLDL CHOLESTEROL 23 mg/dL
[2022-06-22 09:42] LABS: THYROID STIMULATING HORMONE 1.68 uIU/mL (0.34-5.60)
[2022-06-22 12:34] LABS: ESTIMATED AVERAGE GLUCOSE 160 mg/dL (70-100); HEMOGLOBIN A1c% 7.2 % (4.27-6.07)
== END 2022-06-22 08:43 | disposition home or self-care (01) ==
LOC: LAB 08:42
PROVIDERS: ATTEND Physician Assistant
DX: I10 Essential (primary) hypertension (principal); E78.5 Hyperlipidemia, unspecified; E11.9 Type 2 diabetes mellitus without complications; E83.42 Hypomagnesemia
CPT/HCPCS: 36415; 80053; 80061; 83036; 83721; 83735; 84443; 85025

== ENCOUNTER 2022-07-25 07:51 | Outpatient (CLI) | payer MEDICARE, OTHER ==
[2022-07-25 12:04] LABS: BASOPHILS # (AUTO) 0.1 10^3/uL (0.0-0.1); BASOPHILS % (AUTO) 0.9 %; EOSINOPHILS # (AUTO) 1.1 10^3/uL (0.0-0.7); EOSINOPHILS % (AUTO) 8.5 %; HCT - HEMATOCRIT 33.4 % (37.0-47.0); HGB - HEMOGLOBIN 10.9 g/dL (12.0-16.0); LYMPHOCYTES # (AUTO) 3.3 10^3/uL (1.5-3.5); LYMPHOCYTES % (AUTO) 25.6 %; MEAN CORPUSCULAR HEMOGLOBIN 28.5 pg (27.0-31.0); MEAN CORPUSCULAR HGB CONC 32.6 g/dL (32.0-36.0); MEAN CORPUSCULAR VOLUME 87.4 fL (81.0-99.0); MEAN PLATELET VOLUME 9.2 fL (7.9-10.8); MONOCYTES % (AUTO) 7.5 %; NEUTROPHILS # (AUTO) 7.3 10^3/uL (1.5-6.6); NEUTROPHILS % (AUTO) 56.5 %; PLT - PLATELET COUNT 393 10^3/uL (130-450); RED BLOOD COUNT 3.82 10^6/uL (4.20-5.40); RED CELL DISTRIBUTION WIDTH 12.2 % (12.0-15.0); SLIDE REVIEW? Indicated; WHITE BLOOD COUNT 12.9 x10^3/uL (4.8-10.8)
[2022-07-25 12:24] LABS: PLATELET ESTIMATE, MANUAL NORMAL (130-450,000) (NORMAL); PLATELET MORPHOLOGY NORMAL APPEARANCE (NORMAL); RBC MORPHOLOGY (MULTIPLE) NORMAL APPEARANCE (NORMAL); WBC MORPHOLOGY (MULTIPLE) NORMAL APPEARANCE (NORMAL)
[2022-07-25 12:52] LABS: THYROID STIMULATING HORMONE 1.95 uIU/mL (0.34-5.60)
[2022-07-25 12:53] LABS: ALBUMIN 4.5 g/dL (3.2-5.5); ALBUMIN/GLOBULIN RATIO 1.4 (1.0-2.2); ALKALINE PHOSPHATASE 61 IU/L (42-121); ALT ALANINE AMINOTRANSFERASE 17 IU/L (10-60); AST ASPARTATE AMINOTRANSFERASE 24 IU/L (10-42); BILIRUBIN,TOTAL 0.6 mg/dL (0.2-1.0); BUN - BLOOD UREA NITROGEN 17 mg/dL (6-20); CALCIUM 9.7 mg/dL (8.5-10.3); CARBON DIOXIDE - CO2 25 mmol/L (21-32); CHLORIDE 101 mmol/L (101-111); CHOL/HDL RATIO 2.8 (<4.4); CHOLESTEROL 157 mg/dL; CREATININE 0.7 mg/dL (0.4-1.0); GFR - MDRD 83 (>89); GLUCOSE 153 mg/dL (70-100); HDL CHOLESTEROL 57 mg/dL; LDL CHOLESTEROL,CALCULATED 71 mg/dL; LDL/HDL RATIO 1.2 (<4.4); MAGNESIUM 1.6 mg/dL (1.7-2.8); POTASSIUM 4.6 mmol/L (3.5-5.0); SODIUM 135 mmol/L (135-145); TOTAL PROTEIN 7.7 g/dL (6.7-8.2); TRIGLYCERIDES 146 mg/dL; VLDL CHOLESTEROL 29 mg/dL
[2022-07-25 14:49] LABS: ESTIMATED AVERAGE GLUCOSE 154 mg/dL (70-100)
== END 2022-07-25 07:52 | disposition home or self-care (01) ==
LOC: LAB.N 07:51
PROVIDERS: ATTEND Internal Medicine Nephrology
DX: I10 Essential (primary) hypertension (principal); E78.5 Hyperlipidemia, unspecified; E11.9 Type 2 diabetes mellitus without complications; E83.42 Hypomagnesemia; N05.9 Unspecified nephritic syndrome with unspecified morphologic changes; D70.9 Neutropenia, unspecified; D63.1 Anemia in chronic kidney disease; T86.10 Unspecified complication of kidney transplant
CPT/HCPCS: 36415; 80053; 80061; 80197; 83036; 83721; 83735; 84443; 85025

== ENCOUNTER 2022-11-23 10:22 | Outpatient (CLI) | payer MEDICARE, OTHER ==
[2022-11-23 10:49] LABS: ALBUMIN 4.4 g/dL (3.2-5.5); ALBUMIN/GLOBULIN RATIO 1.3 (1.0-2.2); BILIRUBIN,TOTAL 0.4 mg/dL (0.2-1.0); CALCIUM 9.7 mg/dL (8.5-10.3); CREATININE 0.8 mg/dL (0.4-1.0); POTASSIUM 4.2 mmol/L (3.5-5.0); TOTAL PROTEIN 7.9 g/dL (6.7-8.2)
== END 2022-11-23 10:23 | disposition home or self-care (01) ==
LOC: LAB 10:22
PROVIDERS: ATTEND Nurse Practitioner
DX: I48.0 Paroxysmal atrial fibrillation (principal)
CPT/HCPCS: 36415; 80053

== ENCOUNTER 2023-03-24 08:06 | Outpatient (CLI) | payer MEDICARE, OTHER ==
[2023-03-24 12:28] LABS: BASOPHILS # (AUTO) 0.1 10^3/uL (0.0-0.1); EOSINOPHILS # (AUTO) 0.9 10^3/uL (0.0-0.7); EOSINOPHILS % (AUTO) 7.9 %; HCT - HEMATOCRIT 33.5 % (37.0-47.0); HGB - HEMOGLOBIN 10.8 g/dL (12.0-16.0); LYMPHOCYTES # (AUTO) 3.6 10^3/uL (1.5-3.5); LYMPHOCYTES % (AUTO) 30.4 %; MEAN CORPUSCULAR HEMOGLOBIN 28.8 pg (27.0-31.0); MEAN CORPUSCULAR HGB CONC 32.2 g/dL (32.0-36.0); MEAN CORPUSCULAR VOLUME 89.3 fL (81.0-99.0); MEAN PLATELET VOLUME 9.6 fL (7.9-10.8); MONOCYTES # (AUTO) 0.8 10^3/uL (0.0-1.0); MONOCYTES % (AUTO) 6.4 %; NEUTROPHILS # (AUTO) 6.4 10^3/uL (1.5-6.6); PLT - PLATELET COUNT 374 10^3/uL (130-450); RED BLOOD COUNT 3.75 10^6/uL (4.20-5.40); RED CELL DISTRIBUTION WIDTH 12.6 % (12.0-15.0); WHITE BLOOD COUNT 11.8 x10^3/uL (4.8-10.8)
[2023-03-24 12:33] LABS: ESTIMATED AVERAGE GLUCOSE 148 mg/dL (70-100); HEMOGLOBIN A1c% 6.8 % (4.27-6.07)
[2023-03-24 12:44] LABS: CALCIUM 9.6 mg/dL (8.5-10.3); CREATININE 0.9 mg/dL (0.6-1.3); POTASSIUM 4.3 mmol/L (3.5-4.5); URIC ACID 5.9 mg/dL (2.3-6.6)
[2023-03-24 12:56] LABS: CREATININE,URINE 182.6 mg/dL; PROTEIN/CREATININE RATIO,URINE 0.2 (<=0.2)
[2023-03-24 13:01] LABS: FERRITIN 24.2 ng/mL (11.0-306.8)
== END 2023-03-24 08:07 | disposition home or self-care (01) ==
LOC: LAB.N 08:06
PROVIDERS: ATTEND Internal Medicine Nephrology
DX: E11.9 Type 2 diabetes mellitus without complications (principal); N05.9 Unspecified nephritic syndrome with unspecified morphologic changes; M10.00 Idiopathic gout, unspecified site; R80.9 Proteinuria, unspecified; D70.9 Neutropenia, unspecified; I10 Essential (primary) hypertension; D63.1 Anemia in chronic kidney disease; T86.10 Unspecified complication of kidney transplant
CPT/HCPCS: 36415; 80048; 80197; 82570; 82607; 82728; 82746; 83036; 83540; 84156; 84466; 84550; 85025

== ENCOUNTER 2023-04-03 11:31 | Outpatient (CLI) | payer MEDICARE, OTHER | END 2023-04-03 11:32 | disposition home or self-care (01) | LOC: LAB 11:31 | PROVIDERS: ATTEND Internal Medicine Nephrology | DX: E03.9 Hypothyroidism, unspecified (principal) | CPT/HCPCS: 36415; 84443 ==

== ENCOUNTER 2023-09-22 08:14 | Outpatient (CLI) | payer MEDICARE, OTHER ==
[2023-09-22 12:12] LABS: HCT - HEMATOCRIT 32.3 % (37.0-47.0); HGB - HEMOGLOBIN 10.3 g/dL (12.0-16.0); MEAN CORPUSCULAR HEMOGLOBIN 28.7 pg (27.0-31.0); MEAN CORPUSCULAR HGB CONC 31.9 g/dL (32.0-36.0); MEAN PLATELET VOLUME 9.9 fL (7.9-10.8); RED BLOOD COUNT 3.59 10^6/uL (4.20-5.40); RED CELL DISTRIBUTION WIDTH 12.6 % (12.0-15.0); WHITE BLOOD COUNT 11.3 x10^3/uL (4.8-10.8)
[2023-09-22 12:40] LABS: CALCIUM 10.2 mg/dL (8.5-10.3); CREATININE 0.8 mg/dL (0.6-1.3); POTASSIUM 4.3 mmol/L (3.5-4.5)
== END 2023-09-22 08:15 | disposition home or self-care (01) ==
LOC: LAB.N 08:14
PROVIDERS: ATTEND Internal Medicine Nephrology
DX: N05.9 Unspecified nephritic syndrome with unspecified morphologic changes (principal); D70.9 Neutropenia, unspecified; D63.1 Anemia in chronic kidney disease; T86.10 Unspecified complication of kidney transplant
CPT/HCPCS: 36415; 80048; 80197; 85027

== ENCOUNTER 2023-10-19 14:03 | Emergency (ER) | payer MEDICARE, OTHER ==
--- NOTE | 2023-10-19 14:37 | ED Physician Documentation ---
History of Present Illness - Stated complaint Stated Complaint: HP/NAUSEA - Chief complaint Chief Complaint: General - History obtained from History obtained from: Patient - Additonal information Additional information: She had a kidney transplant in 2000. She has been sick for about 2 days with sore throat, cough and congestion with bodyaches and a low-grade fever. Her is sick as well. 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 : Renal insuffiency HEENT: None Psych: Anxiety, Claustrophobia Musculoskeletal: Osteoarthritis, Osteoporosis Derm: None - Past Surgical History Past Surgical History: Yes General: Cholecystectomy /HOUSEKEEPER CAREGIVER: Hysterectomy - Present Medications Home Medications: Ambulatory Orders Medication Instructions Recorded Confirmed Magnesium Oxide [Magnesium] 400 mg PO DAILY 12/31/19 07/17/22 Pravastatin [Pravachol] 40 mg PO QPM 12/31/19 07/17/22 Tacrolimus 2 mg PO BID 12/31/19 07/17/22 metFORMIN [Glucophage] 500 mg PO BID 03/23/20 07/17/22 mycophenolate mofetiL [Cellcept] 250 mg PO BID 03/23/20 07/17/22 Acetaminophen [Tylenol] 325 mg PO DAILY PRN 03/24/20 07/17/22 Apixaban [Eliquis] 5 mg PO BID #60 tablet 03/24/20 07/17/22 Metoprolol Succinate [Toprol Xl] 25 mg PO BID #60 tablet 03/24/20 07/17/22 amLODIPine [Norvasc] 2.5 mg PO ONCE 07/17/22 07/17/22 Amox/Clav 875/125 [Augmentin] 1 each PO Q12H #14 tablet 10/19/23 Ondansetron Odt [Zofran] 4 mg TL Q6H PRN #10 tablet 10/19/23 - Allergies Allergies/Adverse Reactions: Allergies Allergy/AdvReac Type Severity Reaction Status Date / Time Sulfa (Sulfonamide Allergy Intermediate Rash Verified 10/19/23 14:09 Antibiotics) hydrocodone AdvReac Emesis Verified 10/19/23 14:09 - Social History Does the pt smoke?: No Smoking Status: Never smoker Does the pt drink ETOH?: No Does the pt have substance abuse?: No - Immunizations Immunizations are current?: Yes - POLST Patient has POLST: No PD ED PE NORMAL - Vitals Vital signs reviewed: Yes (Mild fever) - General General: Alert and oriented X 3, No acute distress - HEENT HEENT: PERRL, EOMI, Pharynx benign - Neck Neck: Supple, no meningeal sign, No bony TTP - Cardiac Cardiac: RRR, No murmur - Respiratory Respiratory: No respiratory distress, Clear bilaterally - Abdomen Abdomen: Non tender - Back Back: No CVA TTP - Derm Derm: Normal color, Warm and dry - Extremities Extremities: No edema, No calf tenderness / cord - Neuro Neuro: Alert and oriented X 3, Normal speech Results - Vitals Vitals: Vital Signs - 24 hr 10/19/23 10/19/23 10/19/23 14:09 14:35 15:05 Temperature 38.1 C H Heart Rate 87 77 86 Respiratory 20 16 16 Rate Blood Pressure 144/80 H 138/80 H 140/86 H O2 Saturation 97 98 100 10/19/23 15:35 Temperature Heart Rate 84 Respiratory 14 Rate Blood Pressure 143/79 H O2 Saturation 98 Oxygen O2 Source Room air - Labs Labs: Laboratory Tests 10/19/23 10/19/23 10/19/23 14:54 14:54 14:54 WBC 11.8 H RBC 3.65 L Hgb 10.1 L Hct 31.4 L MCV 86.0 MCH 27.7 MCHC 32.2 RDW 12.3 Plt Count 272 MPV 8.8 Neut # (Auto) 9.1 H Lymph # (Auto) 1.3 L [place] # (Auto) 1.2 H Eos # (Auto) 0.0 Baso # (Auto) 0.0 Absolute Nucleated RBC 0.00 Nucleated RBC % 0.0 Sodium 127 L Potassium 3.9 Chloride 94 L Carbon Dioxide 21 Anion Gap 12.0 BUN 13 Creatinine 0.8 Estimated GFR (MDRD) 71 L Glucose 182 H Lactic Acid 2.2 Calcium 9.3 Magnesium 1.0 L* Total Bilirubin 0.4 AST 63 H ALT 56 Alkaline Phosphatase 79 Total Protein 7.7 Albumin 4.5 Globulin 3.2 Albumin/Globulin Ratio 1.4 Urine Color Urine Clarity Urine pH Ur Specific [place] Urine Protein Urine Glucose (UA) Urine Ketones Urine Occult Blood Urine Nitrite Urine Bilirubin Urine Urobilinogen Ur Leukocyte Esterase Urine RBC Urine WBC Ur Squamous Epith Cells Urine Bacteria Ur Microscopic Review Urine Culture Comments Nasal Adenovirus (PCR) Nasal B. parapertussis DNA (PCR) Nasal Coronavir 229E PCR Nasal Coronavir HKU1 PCR Nasal Coronavir NL63 PCR Nasal Coronavir OC43 PCR Nasal Enterovir/Rhinovir PCR Nasal Influenza B PCR Nasal Influenza A PCR Nasal Parainfluen 1 PCR Nasal Parainfluen 2 PCR Nasal Parainfluen 3 PCR Nasal Parainfluen 4 PCR Nasal RSV (PCR) Nasal B.pertussis DNA PCR Nasal C.pneumoniae (PCR) Uriel Human Metapneumo PCR Nasal M.pneumoniae (PCR) Nasal SARS-CoV-2 (PCR) 10/19/23 10/19/23 15:02 15:39 WBC RBC Hgb Hct MCV MCH MCHC RDW Plt Count MPV Neut # (Auto) Lymph # (Auto) [place] # (Auto) Eos # (Auto) Baso # (Auto) Absolute Nucleated RBC Nucleated RBC % Sodium Potassium Chloride Carbon Dioxide Anion Gap BUN Creatinine Estimated GFR (MDRD) Glucose Lactic Acid Calcium Magnesium Total Bilirubin AST ALT Alkaline Phosphatase Total Protein Albumin Globulin Albumin/Globulin Ratio Urine Color YELLOW Urine Clarity CLEAR Urine pH 6.0 Ur Specific [place] 1.020 Urine Protein 100 H Urine Glucose (UA) NEGATIVE Urine Ketones TRACE Urine Occult Blood SMALL H Urine Nitrite NEGATIVE Urine Bilirubin NEGATIVE Urine Urobilinogen 0.2 (NORMAL) Ur Leukocyte Esterase NEGATIVE Urine RBC 0-5 Urine WBC 0-3 Ur Squamous Epith Cells RARE Squamous Urine Bacteria None Seen Ur Microscopic Review INDICATED Urine Culture Comments NOT INDICATED Nasal Adenovirus (PCR) NOT DETECTED Nasal B. parapertussis DNA (PCR) NOT DETECTED Nasal Coronavir 229E PCR NOT DETECTED Nasal Coronavir HKU1 PCR NOT DETECTED Nasal Coronavir NL63 PCR NOT DETECTED Nasal Coronavir OC43 PCR NOT DETECTED Nasal Enterovir/Rhinovir PCR NOT DETECTED Nasal Influenza B PCR NOT DETECTED Nasal Influenza A PCR NOT DETECTED Nasal Parainfluen 1 PCR NOT DETECTED Nasal Parainfluen 2 PCR NOT DETECTED Nasal Parainfluen 3 PCR NOT DETECTED Nasal Parainfluen 4 PCR NOT DETECTED Nasal RSV (PCR) NOT DETECTED Nasal B.pertussis DNA PCR NOT DETECTED Nasal C.pneumoniae (PCR) NOT DETECTED Uriel Human Metapneumo PCR NOT DETECTED Nasal M.pneumoniae (PCR) NOT DETECTED Nasal SARS-CoV-2 (PCR) DETECTED A PD Medical Decision Making - ED course ED course: Sounds like she does has a viral URI with systemic symptoms, flulike illness. That said, being a kidney transplant patient, I think a little more workup is necessary with with blood cultures viral panel and chest x-ray. She has a history of renal transplant presents with what sounds most like a nonspecific viral syndrome. Chest x-ray was notable for an obscured right costophrenic angle which could be tissue summation versus airspace disease and/or pleural effusion. CBC showing fairly stable chronic anemia and a white count of 11.8. Note made that looking at prior CBCs she kind of always has the mild elevation in white count. CMP notable for modest hyponatremia a little worse than her usual. She is quite hypomagnesemic. She always runs hypomagnesemic but this is the lowest it has been. Otherwise her kidney function is good with stable GFR compared to priors. Subsequently she was put COVID-positive. Chest x-ray was concerning for small pneumonia and she also has a lot of sinus pain so we will give her Augmentin. We discussed paxlovid, but she says her transplant doctors told her that she could not take Paxlovid. Departure - Departure Disposition: 01 Home, Self Care Clinical Impression: COVID-19 Sinusitis Qualifiers: Sinusitis location: maxillary Chronicity: acute Recurrence: non-recurrent Qualified Code(s): J01.00 - Acute maxillary sinusitis, unspecified Condition: Good Record reviewed to determine appropriate education?: Yes Instructions: ED Viral Syndrome, ED Sinusitis Abx Tx Prescriptions: Amox/Clav 875/125 [Augmentin] 1 each PO Q12H #14 tablet Ondansetron Odt [Zofran] 4 mg TL Q6H PRN #10 tablet PRN Reason: Nausea / Vomiting Comments: I sent your prescription electronically to the [facility] in [place]. You were seen today for COVID, there is potentially a very small pneumonia and some sinus symptoms. I am prescribing antibiotics and medication for nausea. Can t hermilo Tylenol as needed for pain. Return for new or worsening symptoms. You should quarantine for about a week and wear a mask for about a week after that. Forms: PCP List, Activity restrictions
[2023-10-19 14:59] LABS: BASOPHILS % (AUTO) 0.3 %; EOSINOPHILS % (AUTO) 0.3 %; HCT - HEMATOCRIT 31.4 % (37.0-47.0); HGB - HEMOGLOBIN 10.1 g/dL (12.0-16.0); LYMPHOCYTES # (AUTO) 1.3 10^3/uL (1.5-3.5); LYMPHOCYTES % (AUTO) 11.1 %; MEAN CORPUSCULAR HEMOGLOBIN 27.7 pg (27.0-31.0); MEAN CORPUSCULAR HGB CONC 32.2 g/dL (32.0-36.0); MEAN PLATELET VOLUME 8.8 fL (7.9-10.8); MONOCYTES # (AUTO) 1.2 10^3/uL (0.0-1.0); MONOCYTES % (AUTO) 10.3 %; NEUTROPHILS # (AUTO) 9.1 10^3/uL (1.5-6.6); NEUTROPHILS % (AUTO) 77.2 %; PLT - PLATELET COUNT 272 10^3/uL (130-450); RED BLOOD COUNT 3.65 10^6/uL (4.20-5.40); RED CELL DISTRIBUTION WIDTH 12.3 % (12.0-15.0); WHITE BLOOD COUNT 11.8 x10^3/uL (4.8-10.8)
[2023-10-19] MEDS: ONDANSETRON ODT 4 MG TABLET TL STA (15:22)
[2023-10-19 15:26] LABS: ALBUMIN 4.5 g/dL (3.2-5.5); ALBUMIN/GLOBULIN RATIO 1.4 (1.0-2.2); BILIRUBIN,TOTAL 0.4 mg/dL (0.2-1.0); CALCIUM 9.3 mg/dL (8.5-10.3); CREATININE 0.8 mg/dL (0.6-1.3); POTASSIUM 3.9 mmol/L (3.5-4.5); TOTAL PROTEIN 7.7 g/dL (6.4-8.9)
[2023-10-19] MEDS: ONDANSETRON 4 MG/2 ML VIAL IVP STA (15:26)
[2023-10-19] MEDS: SODIUM CHLORIDE 0.9% 1,000 ML IV STA (15:26)
--- NOTE | 2023-10-19 15:38 | XRAY Report ---
PROCEDURE: Chest 1V INDICATIONS: cough fever TECHNIQUE: One view of the chest was acquired. COMPARISON: None. FINDINGS: Surgical changes and devices: None. Lungs and pleura: No pleural effusions or pneumothorax. Lungs are clear. Mediastinum: Mediastinal contours appear normal. Heart size is normal. Bones and chest wall: No suspicious bony lesions. Overlying soft tissues appear unremarkable. IMPRESSION: No acute cardiopulmonary process. Reviewed by: Param Purdy MD on 10/19/2023 2:36 PM AKDT Approved by: aPram Purdy MD on 10/19/2023 2:36 PM AKDT Station ID: [id number]
[2023-10-19 15:52] VITALS: O2SAT 98
[2023-10-19 15:54] LABS: BILIRUBIN,URINE NEGATIVE (NEGATIVE); GLUCOSE, URINE (UA) NEGATIVE (NEGATIVE); KETONES,URINE (UA) TRACE mg/dL (NEGATIVE); LEUKOCYTE ESTERASE, URINE NEGATIVE (NEGATIVE); NITRITE,URINE NEGATIVE (NEGATIVE); OCCULT BLOOD,URINE SMALL (NEGATIVE); PROTEIN,URINE 100 mg/dL (NEGATIVE); UROBILINOGEN,URINE 0.2 (NORMAL) E.U./dL (NORMAL)
[2023-10-19 15:55] LABS: CLARITY,URINE CLEAR (CLEAR)
[2023-10-19 16:08] LABS: BACTERIA,URINE None Seen /HPF (None Seen); RBC,URINE 0-5 /HPF (0-5); SQUAMOUS EPITHELIAL CELL,UR RARE Squamous (<= Few); WBC,URINE 0-3 /HPF (0-5)
[2023-10-19 16:46] LABS: B. PARAPERTUSSIS- RESP PCR PAN NOT DETECTED; B. PERTUSSIS- RESP PCR PANEL NOT DETECTED; C. PNEUMONIAE- RESP PCR PANEL NOT DETECTED; CORONAVIRUS 229E-RESP PCR NOT DETECTED; CORONAVIRUS HKU1-RESP PCR NOT DETECTED; CORONAVIRUS NL63-RESP PCR NOT DETECTED; CORONAVIRUS OC43-RESP PCR NOT DETECTED; HUMAN METAPNEUMOVIRUS NOT DETECTED; INFLUENZA A- RESP PCR PANEL NOT DETECTED; INFLUENZA B - RESP PCR PANEL NOT DETECTED; M. PNEUMONIAE- RESP PCR PANEL NOT DETECTED; PARAINFLUENZA VIRUS 1 NOT DETECTED; PARAINFLUENZA VIRUS 2 NOT DETECTED; PARAINFLUENZA VIRUS 3 NOT DETECTED; PARAINFLUENZA VIRUS 4 NOT DETECTED; RHINOVIRUS/ENTEROVIRUS NOT DETECTED; RSV- RESP PCR PANEL NOT DETECTED
[2023-10-19 16:48] LABS: SARS-CoV-2 -RESP PCR PANEL DETECTED
[2023-10-19] MEDS: MAGNESIUM SULFATE 2 GRAM 2 GM/50 ML BAG IV ONE (16:48)
[2023-10-19 17:25] VITALS: BP 138/72
[2023-10-19] MEDS: AMOX/CLAV 875 MG/125 MG TABLET PO STA (17:28)
== END 2023-10-19 17:34 | disposition home or self-care (01) ==
LOC: ED 14:03
DX: U07.1 COVID-19 (principal); J01.00 Acute maxillary sinusitis, unspecified; Z94.0 Kidney transplant status; E11.9 Type 2 diabetes mellitus without complications; Z79.84 Long term (current) use of oral hypoglycemic drugs; I10 Essential (primary) hypertension
CPT/HCPCS: 36415; 71045; 80053; 81001; 83605; 83735; 85025; 87040; 87633; 96374; 99284; A9270; Q0162; 81003; 87086

== ENCOUNTER 2023-10-25 12:11 | Emergency (ER) | payer MEDICARE, OTHER ==
[2023-10-25 13:04] VITALS: BP 143/76; O2SAT 99
[2023-10-25] MEDS ORDERED: SODIUM CHLORIDE 0.9% 1,000 ML IV STA (13:55)
[2023-10-25 14:11] LABS: BASOPHILS # (AUTO) 0.1 10^3/uL (0.0-0.1); BASOPHILS % (AUTO) 0.5 %; EOSINOPHILS # (AUTO) 0.4 10^3/uL (0.0-0.7); EOSINOPHILS % (AUTO) 2.9 %; HCT - HEMATOCRIT 35.7 % (37.0-47.0); HGB - HEMOGLOBIN 11.5 g/dL (12.0-16.0); LYMPHOCYTES % (AUTO) 33.4 %; MEAN CORPUSCULAR HEMOGLOBIN 27.6 pg (27.0-31.0); MEAN CORPUSCULAR HGB CONC 32.2 g/dL (32.0-36.0); MEAN CORPUSCULAR VOLUME 85.6 fL (81.0-99.0); MEAN PLATELET VOLUME 8.8 fL (7.9-10.8); MONOCYTES # (AUTO) 0.8 10^3/uL (0.0-1.0); MONOCYTES % (AUTO) 6.3 %; NEUTROPHILS # (AUTO) 6.8 10^3/uL (1.5-6.6); NEUTROPHILS % (AUTO) 56.6 %; PLT - PLATELET COUNT 380 10^3/uL (130-450); RED BLOOD COUNT 4.17 10^6/uL (4.20-5.40); RED CELL DISTRIBUTION WIDTH 12.1 % (12.0-15.0)
[2023-10-25 14:23] LABS: ALBUMIN 4.5 g/dL (3.2-5.5); ALBUMIN/GLOBULIN RATIO 1.4 (1.0-2.2); BILIRUBIN,TOTAL 0.6 mg/dL (0.2-1.0); CALCIUM 9.7 mg/dL (8.5-10.3); TOTAL PROTEIN 7.7 g/dL (6.4-8.9)
== END 2023-10-25 15:47 | disposition left against medical advice (07) ==
LOC: ED 12:11
DX: Z53.21 Procedure and treatment not carried out due to patient leaving prior to being seen by health care provider (principal)
CPT/HCPCS: 36415; 80053; 83690; 85025

== ENCOUNTER 2023-10-27 08:30 | Outpatient (CLI) | payer MEDICARE, OTHER ==
[2023-10-27 12:07] LABS: BASOPHILS # (AUTO) 0.1 10^3/uL (0.0-0.1); BASOPHILS % (AUTO) 0.7 %; EOSINOPHILS # (AUTO) 0.5 10^3/uL (0.0-0.7); HCT - HEMATOCRIT 35.4 % (37.0-47.0); HGB - HEMOGLOBIN 11.4 g/dL (12.0-16.0); LYMPHOCYTES # (AUTO) 3.9 10^3/uL (1.5-3.5); LYMPHOCYTES % (AUTO) 24.8 %; MEAN CORPUSCULAR HEMOGLOBIN 27.9 pg (27.0-31.0); MEAN CORPUSCULAR HGB CONC 32.2 g/dL (32.0-36.0); MEAN CORPUSCULAR VOLUME 86.8 fL (81.0-99.0); MEAN PLATELET VOLUME 9.1 fL (7.9-10.8); MONOCYTES # (AUTO) 0.8 10^3/uL (0.0-1.0); MONOCYTES % (AUTO) 4.7 %; NEUTROPHILS # (AUTO) 10.5 10^3/uL (1.5-6.6); NEUTROPHILS % (AUTO) 66.4 %; PLT - PLATELET COUNT 496 10^3/uL (130-450); RED BLOOD COUNT 4.08 10^6/uL (4.20-5.40); RED CELL DISTRIBUTION WIDTH 12.5 % (12.0-15.0); WHITE BLOOD COUNT 15.8 x10^3/uL (4.8-10.8)
[2023-10-27 12:28] LABS: ALBUMIN 4.5 g/dL (3.2-5.5); ALBUMIN/GLOBULIN RATIO 1.4 (1.0-2.2); BILIRUBIN,TOTAL 0.8 mg/dL (0.2-1.0); CALCIUM 9.7 mg/dL (8.5-10.3); POTASSIUM 3.9 mmol/L (3.5-4.5); TOTAL PROTEIN 7.8 g/dL (6.4-8.9)
== END 2023-10-27 08:45 | disposition home or self-care (01) ==
LOC: LAB.N 08:30
PROVIDERS: ATTEND Physician Assistant
DX: K52.9 Noninfective gastroenteritis and colitis, unspecified (principal)
CPT/HCPCS: 36415; 80053; 85025; 87045; 87046; 87177; 87209; 87427; 87493

== ENCOUNTER 2023-10-27 19:27 | Emergency (ER) | payer MEDICARE, OTHER ==
[2023-10-27 20:12] LABS: BASOPHILS # (AUTO) 0.1 10^3/uL (0.0-0.1); BASOPHILS % (AUTO) 0.6 %; EOSINOPHILS # (AUTO) 0.3 10^3/uL (0.0-0.7); EOSINOPHILS % (AUTO) 1.9 %; HCT - HEMATOCRIT 34.8 % (37.0-47.0); HGB - HEMOGLOBIN 11.5 g/dL (12.0-16.0); LYMPHOCYTES # (AUTO) 4.3 10^3/uL (1.5-3.5); LYMPHOCYTES % (AUTO) 27.1 %; MEAN CORPUSCULAR HEMOGLOBIN 27.9 pg (27.0-31.0); MEAN CORPUSCULAR VOLUME 84.5 fL (81.0-99.0); MEAN PLATELET VOLUME 8.8 fL (7.9-10.8); MONOCYTES # (AUTO) 0.8 10^3/uL (0.0-1.0); MONOCYTES % (AUTO) 4.9 %; NEUTROPHILS # (AUTO) 10.4 10^3/uL (1.5-6.6); NEUTROPHILS % (AUTO) 65.2 %; PLT - PLATELET COUNT 483 10^3/uL (130-450); RED BLOOD COUNT 4.12 10^6/uL (4.20-5.40); RED CELL DISTRIBUTION WIDTH 12.4 % (12.0-15.0); WHITE BLOOD COUNT 15.9 x10^3/uL (4.8-10.8)
--- NOTE | 2023-10-27 20:12 | ED Physician Documentation ---
History of Present Illness - Stated complaint Stated Complaint: WEAKNESS, - Chief complaint Chief Complaint: Abd Pain - History obtained from History obtained from: Patient - Additonal information Additional information: HPI from patient. Patient says she was evaluated in an outpatient clinic earlier today, had blood drawn and a stool sample. The results of stool sample are pending at this time per patient (although I do see in [facility] a negative result on a C. difficile test performed outpatient earlier today). However, patient says she was told to come to the emergency department to get IV fluids for "rehydration" (per patient), presumably due to concerns on today's blood test. Patient denies nausea, vomiting. She has been having diarrhea for at least 1 week now. She denies abdominal pain, fever. She is 22 years out from a kidney transplant. Denies any noticeable decrease in UO, denies burning dysuria, malodorous urine, denies back pain. Review of Systems Constitutional: reports: Fatigue. denies: Fever, Chills, Myalgias Cardiac: reports: Reviewed and negative Respiratory: reports: Reviewed and negative GI: reports: Diarrhea. 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5 mg PO ONCE 07/17/22 07/17/22 Amox/Clav 875/125 [Augmentin] 1 each PO Q12H #14 tablet 10/19/23 Ondansetron Odt [Zofran] 4 mg TL Q6H PRN #10 tablet 10/19/23 - Allergies Allergies/Adverse Reactions: Allergies Allergy/AdvReac Type Severity Reaction Status Date / Time Sulfa (Sulfonamide Allergy Intermediate Rash Verified 10/27/23 19:37 Antibiotics) hydrocodone AdvReac Emesis Verified 10/27/23 19:37 - Social History Does the pt smoke?: No Smoking Status: Never smoker Does the pt drink ETOH?: No Does the pt have substance abuse?: No - Immunizations Immunizations are current?: Yes - POLST Patient has POLST: No PD ED PE NORMAL - Vitals Vital signs reviewed: Yes - General General: Alert and oriented X 3, No acute distress, Well developed/nourished - HEENT HEENT: Moist mucous membranes - Neck Neck: Supple, no meningeal sign - Cardiac Cardiac: RRR, No murmur - Respiratory Respiratory: No respiratory distress, Clear bilaterally - Abdomen Abdomen: Normal bowel sounds, Soft, Non tender, Non distended - Back Back: No CVA TTP - Derm Derm: Normal color Results - Vitals Vitals: Vital Signs - 24 hr 10/27/23 10/27/23 19:29 22:01 Temperature 36.6 C Heart Rate 93 104 H Respiratory 16 18 Rate Blood Pressure 141/67 H 168/78 H O2 Saturation 97 100 Oxygen O2 Source Room air - Labs Labs: Laboratory Tests 10/27/23 10/27/23 10/27/23 20:00 20:00 21:20 WBC 15.9 H RBC 4.12 L Hgb 11.5 L Hct 34.8 L MCV 84.5 MCH 27.9 MCHC 33.0 RDW 12.4 Plt Count 483 H MPV 8.8 Neut # (Auto) 10.4 H Lymph # (Auto) 4.3 H [place] # (Auto) 0.8 Eos # (Auto) 0.3 Baso # (Auto) 0.1 Absolute Nucleated RBC 0.00 Nucleated RBC % 0.0 Sodium 133 L Potassium 3.8 Chloride 101 Carbon Dioxide 19 L Anion Gap 13.0 BUN 26 H Creatinine 0.9 Estimated GFR (MDRD) 62 L Glucose 131 H Calcium 9.9 Magnesium 1.1 L Total Bilirubin 0.7 AST 20 ALT 21 Alkaline Phosphatase 70 Total Protein 8.0 Albumin 4.6 Globulin 3.4 Albumin/Globulin Ratio 1.4 Urine Color YELLOW Urine Clarity CLEAR Urine pH 5.5 Ur Specific [place] 1.010 Urine Protein NEGATIVE Urine Glucose (UA) NEGATIVE Urine Ketones NEGATIVE Urine Occult Blood NEGATIVE Urine Nitrite NEGATIVE Urine Bilirubin NEGATIVE Urine Urobilinogen 0.2 (NORMAL) Ur Leukocyte Esterase NEGATIVE Ur Microscopic Review NOT INDICATED Urine Culture Comments NOT INDICATED PD Medical Decision Making - ED course Complexity details: reviewed results, re-evaluated patient, considered differential, d/w patient ED course: WBC 15.9 (was 15.8 earlier). Mildly low hgb (11.5) comparable to baseline. BUN is higher than baseline (22), but normal creatinine and GFR approximates long- term baseline using previous labs in [facility]. She was given a total of 2 L of normal saline IV along with 4 mg IV Zofran for nausea. Results discussed with patient, return precautions reviewed. I note in the computer that the C. difficile test performed earlier today has returned negative. Departure - Departure Disposition: 01 Home, Self Care Clinical Impression: Diarrhea Qualifiers: Diarrhea type: unspecified type Qualified Code(s): R19.7 - Diarrhea, unspecified Condition: Good Instructions: ED Dehydration, ED Vomiting Diarrhea Nonspecific Ad Comments: Follow-up with both your primary care provider and your transplant team; call both of their offices in the morning soon as they are open to arrange for the next available appointment. The most relevant findings tonight are a mildly elevated white blood cell count (white blood cell count 15.9). Your kidney function tests have mild abnormality (BUN 26, normal creatinine at 0.9, mildly low GFR 62). The BUN is higher (abnormal) than your baseline, but your creatinine and GFR are similar to your previous results. Please relay these results to both your primary care provider as well as your patient relations manager and your kidney transplant team to ask if they feel further treatment or testing is necessary. Your urinalysis was completely normal; no protein in the urine, no evidence of urinary tract infection. You were given two liters of normal saline through your IV during your ER stay Forms: PCP List Discharge Date/Time: 10/27/23 22:25
[2023-10-27] MEDS: SODIUM CHLORIDE 0.9% 1,000 ML IV STA ×2 (20:15→20:47)
[2023-10-27 20:30] LABS: ALBUMIN 4.6 g/dL (3.2-5.5); ALBUMIN/GLOBULIN RATIO 1.4 (1.0-2.2); BILIRUBIN,TOTAL 0.7 mg/dL (0.2-1.0); CALCIUM 9.9 mg/dL (8.5-10.3); CREATININE 0.9 mg/dL (0.6-1.3); MAGNESIUM 1.1 mg/dL (1.7-2.3); POTASSIUM 3.8 mmol/L (3.5-4.5)
[2023-10-27] MEDS ORDERED: ONDANSETRON 4 MG/2 ML VIAL ONE (21:08)
[2023-10-27] MEDS: ONDANSETRON 4 MG/2 ML VIAL IVP STA (21:11)
[2023-10-27 21:32] LABS: BILIRUBIN,URINE NEGATIVE (NEGATIVE); GLUCOSE, URINE (UA) NEGATIVE (NEGATIVE); KETONES,URINE (UA) NEGATIVE (NEGATIVE); LEUKOCYTE ESTERASE, URINE NEGATIVE (NEGATIVE); NITRITE,URINE NEGATIVE (NEGATIVE); OCCULT BLOOD,URINE NEGATIVE (NEGATIVE); PH,URINE 5.5 PH (5.0-7.5); PROTEIN,URINE NEGATIVE (NEGATIVE); UROBILINOGEN,URINE 0.2 (NORMAL) E.U./dL (NORMAL)
[2023-10-27 21:33] LABS: CLARITY,URINE CLEAR (CLEAR)
[2023-10-27 22:02] VITALS: BP 168/78; O2SAT 100
== END 2023-10-27 22:25 | disposition home or self-care (01) ==
LOC: ED 19:27
DX: R19.7 Diarrhea, unspecified (principal); R11.0 Nausea; D72.829 Elevated white blood cell count, unspecified; R94.4 Abnormal results of kidney function studies; Z94.0 Kidney transplant status
CPT/HCPCS: 36415; 80053; 81001; 81003; 83735; 85025; 87045; 87046; 87086; 87177; 87209; 87427; 87493; 96361; 96374; 99283

== ENCOUNTER 2023-12-20 12:31 | Outpatient (CLI) | payer MEDICARE, OTHER ==
--- NOTE | 2023-12-21 09:43 | Ultrasound Report ---
PROCEDURE: Carotid Doppler Complete INDICATIONS: CAROTID ARTERIAL DISEASE TECHNIQUE: Color and pulse Doppler interrogation was performed of both carotid systems, with image documentation and velocity measurements. COMPARISON: None. FINDINGS: Right side: Brachial blood pressure: 122/66 mm Hg. Common carotid artery peak systolic velocity: 63 cm/sec. Internal carotid artery peak systolic velocity: 99 cm/sec. Internal carotid artery end diastolic velocity: 37 cm/sec. External carotid artery peak systolic velocity: 91 cm/sec. ICA/CCA peak systolic ratio: 1.57 . Phipps scale imaging description: Moderate atherosclerotic plaque. Percent internal carotid artery stenosis: Less than 50 percent stenosis. Vertebral artery: Flow direction is antegrade. Left side: Brachial blood pressure: 126/64 mm Hg. Common carotid artery peak systolic velocity: 68 cm/sec. Internal carotid artery peak systolic velocity: 97 cm/sec. Internal carotid artery end diastolic velocity: 34 cm/sec. External carotid artery peak systolic velocity: 124 cm/sec. ICA/CCA peak systolic ratio: 1.42 . Phipps scale imaging description: Moderate atherosclerotic plaque. Percent internal carotid artery stenosis: Less than 50 percent stenosis. Vertebral artery: Flow direction is antegrade. IMPRESSION: 1. In the right internal carotid artery, there is less than 50 percent stenosis based on peak systoli c velocity criteria. 2. In the left internal carotid artery, there is less than 50 percent stenosis based on peak systolic velocity criteria. 3. Antegrade blood flow within the right vertebral artery. 4. Antegrade blood flow within the left vertebral artery. The estimate of stenosis included in the report of the imaging study was calculated using the [facility]-end orsed standards of carotid artery stenosis. Reviewed by: Rigo Thompson MD on 12/21/2023 9:41 AM PDT Approved by: Rigo Thompson MD on 12/21/2023 9:41 AM PDT Station ID: [id number]
== END 2023-12-20 12:32 | disposition home or self-care (01) ==
LOC: DI 12:31
PROVIDERS: ATTEND Physician Assistant
DX: I65.23 Occlusion and stenosis of bilateral carotid arteries (principal)
CPT/HCPCS: 93880